=== PATIENT | male | born 1945 | race American Indian/Alaskan Native ===

== ENCOUNTER 2019-06-17 14:44 | Inpatient (IN) | payer MEDICARE ==
--- NOTE | 2019-06-17 16:37 | XRay Report ---
CHEST 1 VIEW INDICATION / CLINICAL INFORMATION: Dyspnea. COMPARISON: None available. FINDINGS: SUPPORT DEVICES: Pacemaker on the right. HEART / MEDIASTINUM: Postsurgical changes in the left hemithorax consistent with pneumonectomy, media stinal shift to the left. LUNGS / PLEURA: Perihilar additional prominence on the right may represent acute interstitial disease . No pneumothorax. ADDITIONAL FINDINGS: No significant additional findings. IMPRESSION: 1. Interstitial disease in the right lung. 2. Homogeneous opacification of the left hemithorax appears to be secondary to pneumonectomy. Signer Name: Chester Ivey MD Signed: 06/17/2019 4:32 PM Workstation Name: [id number]
[2019-06-17 16:56] LABS: Hematocrit 39.4 % (35.5-45.6); Hemoglobin 12.7 gm/dl (11.8-15.2); Mean Corpuscular HGB Conc 32 % (32-34); Mean Corpuscular Volume 88 fl (84-94); Platelet Count 258 K/mm3 (140-440)
[2019-06-17 17:07] LABS: Red Cell Distribution Width 20.7 % (13.2-15.2)
[2019-06-17 17:11] LABS: Alanine Aminotransferase 8 units/L (7-56); Albumin 3.2 g/dL (3.9-5); BUN/Creatinine Ratio 18; Blood Urea Nitrogen 24 mg/dL (9-20); Calcium 9.4 mg/dL (8.4-10.2); Hemolysis Index 60
[2019-06-17 17:31] LABS: Chol/HDL Ratio 1.85 %; HDL Cholesterol 49 mg/dL (40-59); LDL Cholesterol,Direct 39 mg/dL (50-130)
[2019-06-17 17:48] LABS: Anisocytosis 1+; Basophils % (Manual) 0 % (0.0-1.8); Eosinophils % (Manual) 0 % (0.0-4.3); Total Cells Counted 100
[2019-06-17 18:56] LABS: Bacteria,Urine 2+ /HPF (Negative); Bilirubin,Urine NEG (Negative); Blood,Urine SM (Negative); Color,Urine Yellow (Yellow); Mucus,Urine FEW /HPF; Urobilinogen,Urine < 2.0 mg/dL (<2.0)
--- NOTE | 2019-06-17 18:57 | Emergency Department Report ---
<TEJARAPHAEL - Last Filed: 06/17/19 18:50> ED Shortness of Breath HPI - General Chief Complaint: Dyspnea/Respdistress Stated Complaint: LBP Time Seen by Provider: 06/17/19 15:47 Source: patient Mode of arrival: Stretcher Limitations: No Limitations - History of Present Illness MD Complaint: shortness of breath, chest pain Severity: mild Consistency: constant Improves With: nothing Worsens With: nothing Associated Symptoms: chest pain Treatments Prior to Arrival: none - Related Data Allergies Allergy/AdvReac Type Severity Reaction Status Date / Time No Known Allergies Allergy Unverified 06/17/19 16:13 ED Review of Systems Comment: All other systems reviewed and negative ED Past Medical Hx - Past Medical History Previous Medical History?: Yes Hx Hypertension: Yes Hx COPD: Yes Additional medical history: PACEMAKER, CATHS SELF X A FEW YEARS, AFIB - Surgical History Past Surgical History?: Yes Additional Surgical History: LEFT LUNG REMOVED SECONDARY TO LUNG CA - Social History Smoking Status: Former Smoker Substance Use Type: None ED Physical Exam - General Limitations: No Limitations General appearance: alert, in no apparent distress - Head Head exam: Present: atraumatic, normocephalic - Eye Eye exam: Present: normal appearance - ENT ENT exam: Present: mucous membranes moist - Neck Neck exam: Present: normal inspection - Respiratory Respiratory exam: Present: normal lung sounds bilaterally, rhonchi, decreased breath sounds (left side). Absent: respiratory distress - Cardiovascular Cardiovascular Exam: Present: regular rate, irregular rhythm. Absent: systolic murmur, diastolic murmur, rubs, gallop - GI/Abdominal GI/Abdominal exam: Present: soft, normal bowel sounds. Absent: distended, hypoactive bowel sounds, bruit - Rectal Rectal exam: Present: deferred - Extremities Exam Extremities exam: Present: normal inspection - Back Exam Back exam: Present: normal inspection - Neurological Exam Neurological exam: Present: alert, oriented X3 - Psychiatric Psychiatric exam: Present: normal affect, normal mood - Skin Skin exam: Present: warm, dry, intact, normal color. Absent: rash ED Medical Decision Making - Lab Data Result diagrams: 06/17/19 16:36 06/17/19 16:36 - EKG Data Rate: tachycardia - Radiology Data Radiology results: report reviewed Referring Physician:RAPHAEL LEZAMAPatient Name:CHICO VALDIVIAPatient ID:[id number] of :[id number]:MaleAccession:[id number] Date:1883-20-63Kgkhas Status:Finalized Findings [facility] [address] [place] [address] XRay Report Signed Patient: CHICO VALDIVIA JR MR#: [id number] : 1945 Acct:[id number] Age/Sex: 73 / M ADM Date: 06/17/19 Loc: ED Attending Dr: Ordering Physician: CONRADO LOYA Date of Service: 06/17/19 Procedure(s): XR chest 1V ap Accession Number(s): [id number] cc: CONRADO LOYA Fluoro Time In Minutes: CHEST 1 VIEW INDICATION / CLINICAL INFORMATION: Dyspnea. COMPARISON: None available. FINDINGS: SUPPORT DEVICES: Pacemaker on the right. HEART / MEDIASTINUM: Postsurgical changes in the left hemithorax consistent with pneumonectomy, mediastinal shift to the left. LUNGS / PLEURA: Perihilar additional prominence on the right may represent acute interstitial disease. No pneumothorax. ADDITIONAL FINDINGS: No significant additional findings. IMPRESSION: 1. Interstitial disease in the right lung. 2. Homogeneous opacification of the left hemithorax appears to be secondary to pneumonectomy. Signer Name: Chester Ivey MD Signed: 06/17/2019 4:32 PM Workstation Name: [id number] Transcribed By: EMILEE Dictated By: Chester Ivey MD Electronically Authenticated By: Chester Ivey MD Signed Date/Time: 06/17/19 163 DD/ 163 TD/TT: ED Disposition Clinical Impression: Hypoxia Pneumonia Qualifiers: Pneumonia type: due to unspecified organism Laterality: right Lung location: unspecified part of lung Qualified Code(s): J18.9 - Pneumonia, unspecified organism Disposition: - OP ADMIT IP TO THIS HOSP Condition: Stable Instructions: Bacterial Pneumonia (ED) <SONYA WAHL - Last Filed: 06/17/19 23:09> ED Shortness of Breath HPI - History of Present Illness Initial Comments: Patient is a 73-year-old gentleman who is presenting with cough the past 2-3 days with increased shortness of breath. Short of breath worse with exertion. Patient has a history of COPD hypertension and a left lung removal secondary to lung cancer. Patient denies fever nausea vomiting. Patient does have some discomfort in the chest with cough. Patient is not oxygen dependent ED Review of Systems ROS: Stated complaint: LBP Other details as noted in HPI ED Course Vital Signs 06/17/19 06/17/19 06/17/19 15:09 15:37 17:45 Temperature 98.8 F Pulse Rate 112 H 110 H 99 H Respiratory 25 H 28 H Rate Blood Pressure 120/39 Blood Pressure 140/77 133/47 [Right] O2 Sat by Pulse 96 97 Oximetry 06/17/19 19:25 Temperature 98.0 F Pulse Rate 92 H Respiratory 13 Rate Blood Pressure Blood Pressure 124/107 [Right] O2 Sat by Pulse 93 Oximetry ED Medical Decision Making - Lab Data Result diagrams: 06/17/19 16:36 06/17/19 16:36 - Radiology Data Ordering Physician: CONRADO LOYA Date of Service: 06/17/19 Procedure(s): CT angio chest Accession Number(s): [id number] cc: CONRADO LOYA CTA CHEST WITH IV CONTRAST INDICATION: chest pain sob CONTRAST: 100 cc Omnipaque 350 IV COMPARISON: AP portable chest x-ray today Three-plane MIP reconstructions were produced. All CT scans at this location are performed using CT dose reduction for ALARA by means of automated exposure control. FINDINGS: No significant focal axillary or chest wall abnormalities are seen. No significant focal bony lesions are noted. Both lobes of the thyroid are heterogenous in appearance with several bilateral subcentimeter nodule versus cyst but without obvious dominant mass. Left pneumonectomy changes are seen with small amount of residual left pleural effusion and chronic appearing diffuse left pleural thickening. In the lower portion of the pleural effusion there is mild increased density up to 1055 Hounsfield units which could represent a small amount of blood or other proteinaceous material the possibly is just artifactual and is of unknown chronicity in this setting. Volume loss is seen with mediastinal shift to the left. No right pleural effusion is seen. There may be mild right hilar jessee prominence. No mediastinal or left hilar masses are obvious. Visualized portions of the upper abdomen show bilateral renal cysts. No definite adrenal lesion is seen. Right lung shows moderate chronic changes including diffuse emphysematous changes. In the right lower lobe there is moderate pneumonic type infiltrate and peripherally pleural parenchymal calcifications are seen which appear chronic. Mild patchy interstitial and alveolar type infiltrate are seen in the right middle lobe. There is a question of a nodular lesion in the right middle lobe centrally measuring 1 cm though this possibly is just patchy infiltrate. The aorta shows prominent atherosclerotic changes. Aorta is not well opacified for internal evaluation. Ascending aorta is dilated and the midportion has a diameter of 4.6 cm. The mid aortic arch diameter is 3 cm and beginning in the distal aortic arch there is dilatation with the distal arch measurement of 3.8 cm, proximal descending aorta diameter of 3.7 cm, mid descending diameter is 3 cm, distal descending diameter is 3.1 cm and proximal abdominal aorta diameter at the superior mesenteric artery root 2.4 cm. Good opacification of the pulmonary arterial system was achieved. I do not see convincing evidence of pulmonary thromboembolism. Left pulmonary artery has been ligated in conjunction with the pneumonectomy. IMPRESSION: 1. No evidence of pulmonary thromboembolism 2. Moderate right-sided pneumonitis, worse on the right lower lobe also seen in the right middle lobe 3. Nodule versus patchy infiltrate in the right middle lobe, recommend follow-up 4. Heterogenous appearance of the thyroid, likely representing mild multinodular goiter 5. Left pneumonectomy changes 6. Mild right hilar jessee prominence likely is reactive 7. Aortic dilatation as above - Medical Decision Making Patient is a 73-year-old male who is presenting with cough. Patient has some increased shortness of breath which is improved with oxygen therapy. X-ray shows pneumonitis the patient has elevated white count making pneumonia likely. Patient does seem to be requiring oxygen for improvement of his symptoms and the patient is to be admitted to the hospitalist service. Patient was given Levaquin. Blood cultures were drawn. Patient also has evidence of urinary tract infection worst-case the Levaquin will cover this as well. Critical Care Time: Yes (30) Critical care attestation.: If time is entered above; I have spent that time in minutes in the direct care of this critically ill patient, excluding procedure time. ED Disposition Is pt being admited?: Yes Does the pt Need Aspirin: No Time of Disposition: 23:09
--- NOTE | 2019-06-17 20:58 | Cat Scan Report ---
CTA CHEST WITH IV CONTRAST INDICATION: chest pain sob CONTRAST: 100 cc Omnipaque 350 IV COMPARISON: AP portable chest x-ray today Three-plane MIP reconstructions were produced. All CT scans at this location are performed using CT d ose reduction for ALARA by means of automated exposure control. FINDINGS: No significant focal axillary or chest wall abnormalities are seen. No significant focal rj ny lesions are noted. Both lobes of the thyroid are heterogenous in appearance with several bilateral subcentimeter nodule versus cyst but without obvious dominant mass. Left pneumonectomy changes are s een with small amount of residual left pleural effusion and chronic appearing diffuse left pleural th ickening. In the lower portion of the pleural effusion there is mild increased density up to 1055 Mara nsfield units which could represent a small amount of blood or other proteinaceous material the possi kevin is just artifactual and is of unknown chronicity in this setting. Volume loss is seen with medias tinal shift to the left. No right pleural effusion is seen. There may be mild right hilar jessee promi nence. No mediastinal or left hilar masses are obvious. Visualized portions of the upper abdomen show bilateral renal cysts. No definite adrenal lesion is seen. Right lung shows moderate chronic changes including diffuse emphysematous changes. In the right lower lobe there is moderate pneumonic type infiltrate and peripherally pleural parenchymal calcifications are seen which appear chronic. Mild patchy interstitial and alveolar type infiltrate are seen in the right middle lobe. There is a question of a nodular lesion in the right middle lobe centrally measur ing 1 cm though this possibly is just patchy infiltrate. The aorta shows prominent atherosclerotic changes. Aorta is not well opacified for internal evaluatio n. Ascending aorta is dilated and the midportion has a diameter of 4.6 cm. The mid aortic arch diamet er is 3 cm and beginning in the distal aortic arch there is dilatation with the distal arch measureme nt of 3.8 cm, proximal descending aorta diameter of 3.7 cm, mid descending diameter is 3 cm, distal d escending diameter is 3.1 cm and proximal abdominal aorta diameter at the superior mesenteric artery root 2.4 cm. Good opacification of the pulmonary arterial system was achieved. I do not see convincing evidence of pulmonary thromboembolism. Left pulmonary artery has been ligated in conjunction with the pneumonect ricky. IMPRESSION: 1. No evidence of pulmonary thromboembolism 2. Moderate right-sided pneumonitis, worse on the right lower lobe also seen in the right middle lobe 3. Nodule versus patchy infiltrate in the right middle lobe, recommend follow-up 4. Heterogenous appearance of the thyroid, likely representing mild multinodular goiter 5. Left pneumonectomy changes 6. Mild right hilar jessee prominence likely is reactive 7. Aortic dilatation as above INCIDENTAL THYROID NODULE RECOMMENDATIONS Nonpalpable nodules detected on US or other anatomic imaging studies are termed incidentally discover ed nodules or incidentalomas. Nonpalpable nodules have the same risk of malignancy as palpable nodule s with the same size. Generally, only nodules >1 cm should be evaluated, since they have a greater po tential to be clinically significant cancers. (JEANCARLOS, 2009). Follow up for incidental thyroid nodules <1 cm is not recommended. In patients <35 years with an incidental thyroid nodule detected on CT, MRI, or extrathyroidal ultras ound, dedicated thyroid ultrasound is recommended if the nodule is 1 cm, has no suspicious imaging fe atures, and if the patient has normal life expectancy. In patients 35 years with an incidental thyroid nodule detected on CT, MRI, or extrathyroidal ultraso und, dedicated thyroid ultrasound is recommended if the nodule is 1.5 cm, has no suspicious imaging f eatures, and if the patient has normal life expectancy. INCIDENTAL PULMONARY NODULE RECOMMENDATIONS Solid Nodule size* <6 mm -- Single or Multiple - Low Risk Patient: No routine follow-up - High Risk Patient: Optional CT at 12 months Solid Nodule size 6-8 mm -- Single - Low Risk Patient: CT at 6-12 months, then consider CT at 18-24 months - High Risk Patient: CT at 6-12 months, then CT at 18-24 months Solid Nodule size 6-8 mm -- Multiple - Low Risk Patient: CT at 3-6 months, then consider CT at 18-24 months - High Risk Patient: CT at 3-6 months, then CT at 18-24 months Solid Nodule size >8 mm -- Single - Low Risk or High Risk Patient: Consider CT at 3 months, PET/CT, or tissue sampling Solid Nodule size >8 mm -- Multiple - Low Risk Patient: CT at 3-6 months, then consider CT at 18-24 months - High Risk Patient: CT at 3-6 months, then CT at 18-24 months Subsolid Nodule (Ground glass) <6 mm - No routine follow-up Subsolid Nodule (Ground glass) >=6 mm - CT at 6-12 months to confirm persistence, then CT every 2 years until 5 years Subsolid Nodule (Part solid) <6 mm - No routine follow-up Subsolid Nodule (Part solid) >=6 mm - CT at 3-6 months to confirm persistence. If unchanged and solid component remains <6mm, annual CT s hould be performed for 5 years. Subsolid Nodule (Multiple) <6 mm - CT at 3-6 months. If stable, consider CT at 2 and 4 years. Subsolid Nodule (Multiple) >=6 mm - CT at 3-6 months. Subsequent management based on the most suspicious nodule(s). Note These recommendations do not apply to lung cancer screening, patients with immunosuppression, o r patients with known primary cancer. Note Newly detected indeterminate nodule in persons 35 years of age or older. Persons under the age of 35 should not receive follow-up unless there is a known primary cancer. Low Risk Patient -- minimal or absent history of smoking and of other known risk factors. High Risk Patient -- history of smoking or of other known risk factors. *Dimensions are average of long and short axes, rounded to the nearest millimeter. Based on 2017 Fleischner Society Guidelines found in Radiology 2017 284:228-243. https://doi.org/10.1 148/radiol.0740690168 Signer Name: João Campbell MD Signed: 06/17/2019 8:54 PM Workstation Name: [id number]
[2019-06-17] MEDS ORDERED: ONDANSETRON 4 MG/2 ML INJ IV PRN (23:25)
[2019-06-17] MEDS ORDERED: MORPHINE 2 MG/1 ML INJ IV PRN (23:25)
[2019-06-17] MEDS ORDERED: MAGNESIUM HYDROXIDE (MOM) ORAL LIQD UDC PO PRN (23:25)
--- NOTE | 2019-06-18 01:04 | History and Physical Report ---
History of Present Illness Date of examination: 06/17/19 Date of admission: 06/17/19 23:18 Chief complaint: Shortness of breath and cough History of present illness: 73-year-old male with known history of COPD, hypertension , left-sided lobectomy secondary to lung cancer presenting to the emergency room today complaining of cough and shortness of breath. Cough has been productive of some yellowish sputum and he has had some associated chest discomfort. Denies any sick contacts and no recent travel. Denies any nausea vomiting and no diarrhea. No headache or dizziness. Upon arrival in the emergency room patient was found to be slightly hypoxic and was placed on oxygen by nasal cannula. His work-up in the emergency room including chest x-ray and CT angiogram was consistent with pneumonia. He also had an elevated white count of 23 and some mild UTI. Past History Past Medical History: COPD, hypertension Past Surgical History: Other (Left lobectomy in the past secondary to lung cancer) Social history: smoking (Smokes less than half a pack of cigarette daily) Medications and Allergies Allergies Allergy/AdvReac Type Severity Reaction Status Date / Time No Known Allergies Allergy Unverified 06/17/19 16:13 Home Medications Medication Instructions Recorded Confirmed Last Taken Type Apixaban [Eliquis] 5 mg PO Q12HR 06/18/19 06/18/19 06/15/19 22:00 History 5 mg Atorvastatin [Lipitor Tab] 40 mg PO QHS 06/18/19 06/18/19 06/15/19 22:00 History 40 mg Finasteride 5 mg PO DAILY 06/18/19 06/18/19 06/15/19 09:00 History 5 mg Metoprolol Xl [Metoprolol 100 mg PO QDAY 06/18/19 06/18/19 06/15/19 09:00 History SUCCINATE ER TAB] 100 mg Tamsulosin [Flomax] 0.4 mg PO QDAY 06/18/19 06/18/19 06/15/19 22:00 History 0.4mg allopurinoL [Zyloprim] 300 mg PO QDAY 06/18/19 06/18/19 06/15/19 09:00 History 300 mg hydrALAZINE [Apresoline] 25 mg PO Q8HR 06/18/19 06/18/19 06/15/19 22:00 History 25 mg Active Meds: Active Medications Acetaminophen (Tylenol) 650 mg PO Q4H PRN PRN Reason: Pain MILD(1-3)/Fever >100.5/LEAHY Sodium Chloride (Nacl 0.9% 1000 Ml) 1,000 mls @ 125 mls/hr IV DIRECT JON Levofloxacin/Dextrose (Levaquin 750mg/150ml) 750 mg in 150 mls @ 100 mls/hr IV Q24HR JON; Protocol Magnesium Hydroxide (Milk Of Magnesia) 30 ml PO Q4H PRN PRN Reason: Constipation Morphine Sulfate (Morphine) 2 mg IV Q4H PRN PRN Reason: Pain, Moderate (4-6) Ondansetron HCl (Zofran) 4 mg IV Q8H PRN PRN Reason: Nausea And Vomiting Sodium Chloride (Sodium Chloride Flush Syringe 10 Ml) 10 ml IV BID JON Sodium Chloride (Sodium Chloride Flush Syringe 10 Ml) 10 ml IV PRN PRN PRN Reason: LINE FLUSH Review of Systems Respiratory: cough, shortness of breath Exam - Constitutional Vitals: Temp Pulse Resp BP Pulse Ox 98.0 F 92 H 13 124/107 93 06/17/19 19:25 06/17/19 19:25 06/17/19 19:25 06/17/19 19:25 06/17/19 19:25 General appearance: Present: no acute distress, well-nourished - EENT Eyes: Present: PERRL, EOM intact ENT: hearing intact, clear oral mucosa, dentition normal - Neck Neck: Present: supple, normal ROM - Respiratory Respiratory effort: normal Respiratory: bilateral: diminished - Cardiovascular Rhythm: irregularly irregular - Extremities Extremities: no ischemia, pulses symmetrical, No edema, Full ROM Peripheral Pulses: within normal limits - Abdominal General gastrointestinal: Present: soft, non-tender, non-distended - Integumentary Integumentary: Present: clear, warm, dry - Musculoskeletal Musculoskeletal: strength equal bilaterally - Psychiatric Psychiatric: appropriate mood/affect, intact judgment & insight, cooperative - Neurologic Neurologic: CNII-XII intact, moves all extremities Results - Labs CBC & Chem 7: 06/17/19 16:36 06/17/19 16:36 Labs: Abnormal lab results 06/17/19 06/17/19 06/17/19 Range/Units 16:36 16:36 18:25 WBC 23.4 H (4.5-11.0) K/mm3 RDW 20.7 H (13.2-15.2) % Seg Neuts % (Manual) 91.0 H (40.0-70.0) % Lymphocytes % (Manual) 5.0 L (13.4-35.0) % Seg Neutrophils # Man 21.3 H (1.8-7.7) K/mm3 Monocytes # (Manual) 0.9 H (0.0-0.8) K/mm3 POC ABG pH (7.35-7.45) POC ABG pCO2 (35-45) Carbon Dioxide 19 L (22-30) mmol/L BUN 24 H (9-20) mg/dL Glucose 109 H (75-100) mg/dL Troponin T 0.040 H (0.00-0.029) ng/mL NT-Pro-B Natriuret Pep (0-900) pg/mL Total Protein 8.4 H (6.3-8.2) g/dL Albumin 3.2 L (3.9-5) g/dL LDL Cholesterol Direct 39 L (50-130) mg/dL Urine WBC (Auto) 11.0 H (0.0-6.0) /HPF 06/17/19 06/17/19 06/17/19 Range/Units 18:53 18:53 22:08 WBC (4.5-11.0) K/mm3 RDW (13.2-15.2) % Seg Neuts % (Manual) (40.0-70.0) % Lymphocytes % (Manual) (13.4-35.0) % Seg Neutrophils # Man (1.8-7.7) K/mm3 Monocytes # (Manual) (0.0-0.8) K/mm3 POC ABG pH 7.543 H (7.35-7.45) POC ABG pCO2 28.4 L (35-45) Carbon Dioxide (22-30) mmol/L BUN (9-20) mg/dL Glucose (75-100) mg/dL Troponin T 0.037 H (0.00-0.029) ng/mL NT-Pro-B Natriuret Pep 5019 H (0-900) pg/mL Total Protein (6.3-8.2) g/dL Albumin (3.9-5) g/dL LDL Cholesterol Direct (50-130) mg/dL Urine WBC (Auto) (0.0-6.0) /HPF Assessment and Plan - Patient Problems (1) Pneumonia Current Visit: Yes Status: Acute Qualifiers: Pneumonia type: due to unspecified organism Laterality: right Lung location: unspecified part of lung Qualified Code(s): J18.9 - Pneumonia, unspecified organism Plan to address problem: Patient started on empiric IV antibiotics. We will await blood culture results. (2) Hypoxia Current Visit: Yes Status: Acute Plan to address problem: Possibly secondary to the pneumonia patient has been placed on oxygen and will keep O2 saturation greater or equal to 92%. (3) Leukocytosis Current Visit: Yes Status: Acute Plan to address problem: Possibly secondary to the underlying infection. Will monitor CBC. (4) Hypertension Current Visit: Yes Status: Acute Plan to address problem: Place patient on his routine home medications and monitor vital signs closely. (5) DVT prophylaxis Current Visit: Yes Status: Acute Plan to address problem: Patient currently on anticoagulation. (6) Full code status Current Visit: Yes Status: Acute
[2019-06-18] MEDS: SODIUM CHLORIDE 0.9% 1000 ML 1,000 ML IV SCH ×2 (02:10→15:17)
[2019-06-18 06:57] LABS: Hemoglobin 11.4 gm/dl (11.8-15.2); Mean Corpuscular HGB Conc 33 % (32-34); Mean Corpuscular Volume 86 fl (84-94); Platelet Count 210 K/mm3 (140-440); Red Blood Count 4.07 M/mm3 (3.65-5.03); Red Cell Distribution Width 19.9 % (13.2-15.2)
[2019-06-18 07:15] LABS: BUN/Creatinine Ratio 20; Blood Urea Nitrogen 24 mg/dL (9-20); Calcium 8.4 mg/dL (8.4-10.2); Hemolysis Index 7
[2019-06-18 07:24] LABS: INR 1.78 (0.87-1.13)
[2019-06-18 07:25] LABS: Partial Thromboplastin Time 41.8 Sec. (24.2-36.6)
[2019-06-18] MEDS: TAMSULOSIN 0.4 MG CAP PO SCH (09:41)
[2019-06-18] MEDS: APIXABAN 5 MG TAB PO SCH ×2 (09:41→22:00)
[2019-06-18] MEDS: FINASTERIDE 5 MG TAB PO SCH (09:41)
[2019-06-18] MEDS: allopurinoL 300 MG TAB PO SCH (09:42)
[2019-06-18] MEDS: METOPROLOL SUCCINATE XL 100 MG TAB PO SCH (09:45)
[2019-06-18 10:39] LABS: Band Neutrophils # (Manual) 0.4 K/mm3; Basophils % (Manual) 0 % (0.0-1.8); Eosinophils % (Manual) 0 % (0.0-4.3); Total Cells Counted 100
[2019-06-18 10:40] LABS: Hypochromasia Few; Target Cells Rare
[2019-06-18 10:41] LABS: Large Platelets Few; Platelet Estimate Consistent w Auto
--- NOTE | 2019-06-18 11:27 | Progress Note ---
Assessment and Plan Assessment and plan: RML/RLL pneumonia. Continue IV antibiotics and follow-up blood cultures. Acute COPD exacerbation. Continue IV steroids, IV antibiotics and bronchodilators/nebulizers. History of lung CA. Patient is s/p left-sided lobectomy Acute hypoxemic respiratory failure. Etiology secondary to above. Continue O2 and BiPAP as clinically indicated. Hypertension. Continue antihypertensive medications. Multinodular goiter. Check TSH. Consider thyroid scan DVT prophylaxis. Continue anticoagulants. History Interval history: No new issues overnight. Hospitalist Physical - Constitutional Vitals: Temp Pulse Resp BP Pulse Ox 98.5 F 80 20 121/53 100 06/18/19 08:09 06/18/19 10:00 06/18/19 08:09 06/18/19 09:45 06/18/19 09:45 General appearance: Present: no acute distress, well-nourished - EENT Eyes: Present: PERRL, EOM intact ENT: hearing intact, clear oral mucosa, dentition normal - Neck Neck: Present: supple, normal ROM - Respiratory Respiratory effort: normal Respiratory: bilateral: CTA - Cardiovascular Rhythm: regular Heart Sounds: Present: S1 & S2. Absent: gallop, rub - Extremities Extremities: no ischemia, No edema, Full ROM - Abdominal General gastrointestinal: soft, non-tender, non-distended, normal bowel sounds - Integumentary Integumentary: Present: clear, warm, dry - Neurologic Neurologic: CNII-XII intact, moves all extremities Results - Labs CBC & Chem 7: 06/18/19 05:59 06/18/19 05:59 Labs: Laboratory Last Values WBC 19.9 K/mm3 (4.5-11.0) H 06/18/19 05:59 RBC 4.07 M/mm3 (3.65-5.03) 06/18/19 05:59 Hgb 11.4 gm/dl (11.8-15.2) L 06/18/19 05:59 Hct 35.0 % (35.5-45.6) L 06/18/19 05:59 MCV 86 fl (84-94) 06/18/19 05:59 MCH 28 pg (28-32) 06/18/19 05:59 MCHC 33 % (32-34) 06/18/19 05:59 RDW 19.9 % (13.2-15.2) H 06/18/19 05:59 Plt Count 210 K/mm3 (140-440) 06/18/19 05:59 Add Manual Diff Complete 06/18/19 05:59 Total Counted 100 06/18/19 05:59 Seg Neutrophils % Stitching Department Supervisor 06/18/19 05:59 Seg Neuts % (Manual) 92.0 % (40.0-70.0) H 06/18/19 05:59 Band Neutrophils % 2.0 % 06/18/19 05:59 Lymphocytes % (Manual) 1.0 % (13.4-35.0) L 06/18/19 05:59 Reactive Lymphs % (Man) 0 % 06/18/19 05:59 Monocytes % (Manual) 5.0 % (0.0-7.3) 06/18/19 05:59 Eosinophils % (Manual) 0 % (0.0-4.3) 06/18/19 05:59 Basophils % (Manual) 0 % (0.0-1.8) 06/18/19 05:59 Metamyelocytes % 0 % 06/18/19 05:59 Myelocytes % 0 % 06/18/19 05:59 Promyelocytes % 0 % 06/18/19 05:59 Blast Cells % 0 % 06/18/19 05:59 Nucleated RBC % Not Reportable 06/18/19 05:59 Seg Neutrophils # Man 18.3 K/mm3 (1.8-7.7) H 06/18/19 05:59 Band Neutrophils # 0.4 K/mm3 06/18/19 05:59 Lymphocytes # (Manual) 0.2 K/mm3 (1.2-5.4) L 06/18/19 05:59 Abs React Lymphs (Man) 0.0 K/mm3 06/18/19 05:59 Monocytes # (Manual) 1.0 K/mm3 (0.0-0.8) H 06/18/19 05:59 Eosinophils # (Manual) 0.0 K/mm3 (0.0-0.4) 06/18/19 05:59 Basophils # (Manual) 0.0 K/mm3 (0.0-0.1) 06/18/19 05:59 Metamyelocytes # 0.0 K/mm3 06/18/19 05:59 Myelocytes # 0.0 K/mm3 06/18/19 05:59 Promyelocytes # 0.0 K/mm3 06/18/19 05:59 Blast Cells # 0.0 K/mm3 06/18/19 05:59 WBC Morphology Not Reportable 06/18/19 05:59 Hypersegmented Neuts Not Reportable 06/18/19 05:59 Hyposegmented Neuts Not Reportable 06/18/19 05:59 Hypogranular Neuts Not Reportable 06/18/19 05:59 Smudge Cells Not Reportable 06/18/19 05:59 Toxic Granulation Not Reportable 06/18/19 05:59 Toxic Vacuolation Not Reportable 06/18/19 05:59 Dohle Bodies Not Reportable 06/18/19 05:59 Pelger-Huet Anomaly Not Reportable 06/18/19 05:59 Bong Rods Not Reportable 06/18/19 05:59 Platelet Estimate Consistent w auto 06/18/19 05:59 Clumped Platelets Not Reportable 06/18/19 05:59 Plt Clumps, EDTA Not Reportable 06/18/19 05:59 Large Platelets Few 06/18/19 05:59 Giant Platelets Not Reportable 06/18/19 05:59 Platelet Satelliting Not Reportable 06/18/19 05:59 Plt Morphology Comment Not Reportable 06/18/19 05:59 RBC Morphology Not Reportable 06/18/19 05:59 Dimorphic RBCs Not Reportable 06/18/19 05:59 Polychromasia Not Reportable 06/18/19 05:59 Hypochromasia Few 06/18/19 05:59 Poikilocytosis Not Reportable 06/18/19 05:59 Anisocytosis Not Reportable 06/18/19 05:59 Microcytosis Not Reportable 06/18/19 05:59 Macrocytosis Not Reportable 06/18/19 05:59 Spherocytes Not Reportable 06/18/19 05:59 Pappenheimer Bodies Not Reportable 06/18/19 05:59 Sickle Cells Not Reportable 06/18/19 05:59 Target Cells Rare 06/18/19 05:59 Tear Drop Cells Not Reportable 06/18/19 05:59 Ovalocytes Not Reportable 06/18/19 05:59 Helmet Cells Not Reportable 06/18/19 05:59 [place] Bodies Not Reportable 06/18/19 05:59 [place] Rings Not Reportable 06/18/19 05:59 [place] Cells Not Reportable 06/18/19 05:59 Bite Cells Not Reportable 06/18/19 05:59 Crenated Cell Not Reportable 06/18/19 05:59 Elliptocytes Few 06/18/19 05:59 Acanthocytes (Spur) Not Reportable 06/18/19 05:59 Rouleaux Not Reportable 06/18/19 05:59 Hemoglobin C Crystals Not Reportable 06/18/19 05:59 Schistocytes Not Reportable 06/18/19 05:59 Malaria parasites Not Reportable 06/18/19 05:59 Niels Bodies Not Reportable 06/18/19 05:59 Hem Pathologist Commnt No 06/18/19 05:59 PT 21.0 Sec. (12.2-14.9) H 06/18/19 05:59 INR 1.78 (0.87-1.13) H 06/18/19 05:59 APTT 41.8 Sec. (24.2-36.6) H 06/18/19 05:59 POC ABG pH 7.543 (7.35-7.45) H 06/17/19 22:08 POC ABG pCO2 28.4 (35-45) L 06/17/19 22:08 POC ABG pO2 80 (80-105) 06/17/19 22:08 POC ABG HCO3 24.4 (22-26 mml/L) 06/17/19 22:08 POC ABG Total CO2 25 (23-27mmol/L) 06/17/19 22:08 POC ABG O2 Sat 97 06/17/19 22:08 POC ABG Base Excess 2 ((-2) - (+3)mmol/L) 06/17/19 22:08 FiO2 36 % 06/17/19 22:08 Sodium 139 mmol/L (137-145) 06/18/19 05:59 Potassium 3.9 mmol/L (3.6-5.0) D 06/18/19 05:59 Chloride 103.2 mmol/L (98-107) 06/18/19 05:59 Carbon Dioxide 20 mmol/L (22-30) L 06/18/19 05:59 Anion Gap 20 mmol/L 06/18/19 05:59 BUN 24 mg/dL (9-20) H 06/18/19 05:59 Creatinine 1.2 mg/dL (0.8-1.5) 06/18/19 05:59 Estimated GFR > 60 ml/min 06/18/19 05:59 BUN/Creatinine Ratio 20 % 06/18/19 05:59 Glucose 106 mg/dL (75-100) H 06/18/19 05:59 Calcium 8.4 mg/dL (8.4-10.2) 06/18/19 05:59 Total Bilirubin 0.70 mg/dL (0.1-1.2) 06/17/19 16:36 AST 18 units/L (5-40) 06/17/19 16:36 ALT 8 units/L (7-56) 06/17/19 16:36 Alkaline Phosphatase 74 units/L (35-129) 06/17/19 16:36 Troponin T 0.037 ng/mL (0.00-0.029) H 06/17/19 18:53 NT-Pro-B Natriuret Pep 5019 pg/mL (0-900) H 06/17/19 18:53 Total Protein 8.4 g/dL (6.3-8.2) H 06/17/19 16:36 Albumin 3.2 g/dL (3.9-5) L 06/17/19 16:36 Albumin/Globulin Ratio 0.6 % 06/17/19 16:36 Triglycerides 53 mg/dL (2-149) 06/17/19 16:36 Cholesterol 91 mg/dL (50-199) 06/17/19 16:36 LDL Cholesterol Direct 39 mg/dL (50-130) L 06/17/19 16:36 HDL Cholesterol 49 mg/dL (40-59) 06/17/19 16:36 Cholesterol/HDL Ratio 1.85 % 06/17/19 16:36 Urine Color Yellow (Yellow) 06/17/19 18:25 Urine Turbidity Clear (Clear) 06/17/19 18:25 Urine pH 5.0 (5.0-7.0) 06/17/19 18:25 Ur Specific [place] 1.015 (1.003-1.030) 06/17/19 18:25 Urine Protein 30 mg/dl mg/dL (Negative) 06/17/19 18:25 Urine Glucose (UA) Neg mg/dL (Negative) 06/17/19 18:25 Urine Ketones Neg mg/dL (Negative) 06/17/19 18:25 Urine Blood Sm (Negative) 06/17/19 18:25 Urine Nitrite Pos (Negative) 06/17/19 18:25 Urine Bilirubin Neg (Negative) 06/17/19 18:25 Urine Urobilinogen < 2.0 mg/dL (<2.0) 06/17/19 18:25 Ur Leukocyte Esterase Tr (Negative) 06/17/19 18:25 Urine WBC (Auto) 11.0 /HPF (0.0-6.0) H 06/17/19 18:25 Urine RBC (Auto) 1.0 /HPF (0.0-6.0) 06/17/19 18:25 U Epithel Cells (Auto) 1.0 /HPF (0-13.0) 06/17/19 18:25 Urine Bacteria (Auto) 2+ /HPF (Negative) 06/17/19 18:25 Urine Mucus Few /HPF 06/17/19 18:25 Active Medications - Current Medications Current Medications: Generic Name Dose Route Start Last Admin Trade Name Freq PRN Reason Stop Dose Admin Acetaminophen 650 mg 06/17/19 23:25 Tylenol PO Q4H PRN Pain MILD(1-3)/Fever >100.5/LEAHY Allopurinol 300 mg 06/18/19 10:00 06/18/19 09:42 Zyloprim PO 300 mg QDAY JON Administration Apixaban 5 mg 06/18/19 10:00 06/18/19 09:41 Eliquis PO 5 mg Q12HR JON Administration Protocol Atorvastatin Calcium 40 mg 06/18/19 22:00 Lipitor PO QHS JON Finasteride 5 mg 06/18/19 10:00 06/18/19 09:41 Proscar PO 5 mg DAILY JON Administration Hydralazine HCl 25 mg 06/18/19 14:00 Apresoline PO Q8HR JON Sodium Chloride 1,000 mls @ 125 mls/hr 06/17/19 23:30 06/18/19 02:10 Nacl 0.9% 1000 Ml IV 125 mls/hr DIRECT JON Administration Levofloxacin/Dextrose 750 mg in 150 mls @ 100 mls/hr 06/18/19 10:00 06/18/19 09:40 Levaquin 750mg/150ml IV 100 mls/hr Q24HR JON Administration Protocol Magnesium Hydroxide 30 ml 06/17/19 23:25 Milk Of Magnesia PO Q4H PRN Constipation Metoprolol Succinate 100 mg 06/18/19 10:00 06/18/19 09:45 Metoprolol Xl PO 100 mg QDAY JON Administration Morphine Sulfate 2 mg 06/17/19 23:25 Morphine IV Q4H PRN Pain, Moderate (4-6) Ondansetron HCl 4 mg 06/17/19 23:25 Zofran IV Q8H PRN Nausea And Vomiting Sodium Chloride 10 ml 06/18/19 10:00 06/18/19 09:42 Sodium Chloride Flush Syringe 10 Ml IV 10 ml BID JON Administration Sodium Chloride 10 ml 06/17/19 23:25 06/18/19 02:10 Sodium Chloride Flush Syringe 10 Ml IV 10 ml PRN PRN Administration LINE FLUSH Tamsulosin HCl 0.4 mg 06/18/19 10:00 06/18/19 09:41 Flomax PO 0.4 mg QDAY JON Administration
[2019-06-18] MEDS: hydrALAZINE 25 MG TAB PO SCH (13:11)
[2019-06-18] MEDS ORDERED: VANCOMYCIN PHARMACY TO DOSE IV SCH (18:00)
[2019-06-18] MEDS ORDERED: VANCOMYCIN/NS 1 GM/250 ML 1 GM/250 ML BAG IV SCH (18:00)
[2019-06-18] MEDS: VANCOMYCIN/NS 1 GM/250 ML 1 GM/250 ML BAG IV SCH (18:25)
[2019-06-19] MEDS: ALBUTEROL 2.5 MG/3 ML NEBU IH SCH ×5 (03:49→14:33)
[2019-06-19] MEDS: SODIUM CHLORIDE 0.9% 1000 ML 1,000 ML IV SCH ×2 (04:51→14:13)
--- NOTE | 2019-06-19 08:07 | Progress Note ---
Assessment and Plan Assessment and plan: Sepsis. Present on admission. Patient meets criteria given the leukocytosis, tachycardia and diagnosis of pneumonia. Continue antibiotics and follow-up blood cultures. RML/RLL pneumonia. As above. Follow-up serial chest x-ray. Acute COPD exacerbation. Continue IV steroids, IV antibiotics and bro nchodilators/nebulizers. History of lung CA. Patient is s/p left-sided lobectomy Acute hypoxemic respiratory failure. Etiology secondary to above. Continue O2 and BiPAP as clinically indicated. Hypertension. Continue antihypertensive medications. Multinodular goiter. Check TSH, T3 and T4. Consider thyroid scan DVT prophylaxis. Continue anticoagulants. Disposition. I called the daughter for updates at [phone] but no answer History Interval history: No new issues overnight. Hospitalist Physical - Constitutional Vitals: Temp Pulse Resp BP Pulse Ox 97.8 F 98 H 18 109/43 97 06/19/19 02:50 06/19/19 03:53 06/19/19 03:53 06/19/19 02:50 06/19/19 03:53 General appearance: Present: no acute distress, well-nourished - EENT Eyes: Present: PERRL, EOM intact ENT: hearing intact, clear oral mucosa, dentition normal - Neck Neck: Present: supple, normal ROM - Respiratory Respiratory effort: normal Respiratory: bilateral: CTA - Cardiovascular Rhythm: regular Heart Sounds: Present: S1 & S2. Absent: gallop, rub - Extremities Extremities: no ischemia, No edema, Full ROM - Abdominal General gastrointestinal: soft, non-tender, non-distended, normal bowel sounds - Integumentary Integumentary: Present: clear, warm, dry - Neurologic Neurologic: CNII-XII intact, moves all extremities Results - Labs CBC & Chem 7: 06/19/19 07:28 06/19/19 07:28 Labs: Laboratory Last Values WBC 19.9 K/mm3 (4.5-11.0) H 06/18/19 05:59 RBC 4.07 M/mm3 (3.65-5.03) 06/18/19 05:59 Hgb 11.4 gm/dl (11.8-15.2) L 06/18/19 05:59 Hct 35.0 % (35.5-45.6) L 06/18/19 05:59 MCV 86 fl (84-94) 06/18/19 05:59 MCH 28 pg (28-32) 06/18/19 05:59 MCHC 33 % (32-34) 06/18/19 05:59 RDW 19.9 % (13.2-15.2) H 06/18/19 05:59 Plt Count 210 K/mm3 (140-440) 06/18/19 05:59 Add Manual Diff Complete 06/18/19 05:59 Total Counted 100 06/18/19 05:59 Seg Neutrophils % [employer] Teacher 06/18/19 05:59 Seg Neuts % (Manual) 92.0 % (40.0-70.0) H 06/18/19 05:59 Band Neutrophils % 2.0 % 06/18/19 05:59 Lymphocytes % (Manual) 1.0 % (13.4-35.0) L 06/18/19 05:59 Reactive Lymphs % (Man) 0 % 06/18/19 05:59 Monocytes % (Manual) 5.0 % (0.0-7.3) 06/18/19 05:59 Eosinophils % (Manual) 0 % (0.0-4.3) 06/18/19 05:59 Basophils % (Manual) 0 % (0.0-1.8) 06/18/19 05:59 Metamyelocytes % 0 % 06/18/19 05:59 Myelocytes % 0 % 06/18/19 05:59 Promyelocytes % 0 % 06/18/19 05:59 Blast Cells % 0 % 06/18/19 05:59 Nucleated RBC % Not Reportable 06/18/19 05:59 Seg Neutrophils # Man 18.3 K/mm3 (1.8-7.7) H 06/18/19 05:59 Band Neutrophils # 0.4 K/mm3 06/18/19 05:59 Lymphocytes # (Manual) 0.2 K/mm3 (1.2-5.4) L 06/18/19 05:59 Abs React Lymphs (Man) 0.0 K/mm3 06/18/19 05:59 Monocytes # (Manual) 1.0 K/mm3 (0.0-0.8) H 06/18/19 05:59 Eosinophils # (Manual) 0.0 K/mm3 (0.0-0.4) 06/18/19 05:59 Basophils # (Manual) 0.0 K/mm3 (0.0-0.1) 06/18/19 05:59 Metamyelocytes # 0.0 K/mm3 06/18/19 05:59 Myelocytes # 0.0 K/mm3 06/18/19 05:59 Promyelocytes # 0.0 K/mm3 06/18/19 05:59 Blast Cells # 0.0 K/mm3 06/18/19 05:59 WBC Morphology Not Reportable 06/18/19 05:59 Hypersegmented Neuts Not Reportable 06/18/19 05:59 Hyposegmented Neuts Not Reportable 06/18/19 05:59 Hypogranular Neuts Not Reportable 06/18/19 05:59 Smudge Cells Not Reportable 06/18/19 05:59 Toxic Granulation Not Reportable 06/18/19 05:59 Toxic Vacuolation Not Reportable 06/18/19 05:59 Dohle Bodies Not Reportable 06/18/19 05:59 Pelger-Huet Anomaly Not Reportable 06/18/19 05:59 Bong Rods Not Reportable 06/18/19 05:59 Platelet Estimate Consistent w auto 06/18/19 05:59 Clumped Platelets Not Reportable 06/18/19 05:59 Plt Clumps, EDTA Not Reportable 06/18/19 05:59 Large Platelets Few 06/18/19 05:59 Giant Platelets Not Reportable 06/18/19 05:59 Platelet Satelliting Not Reportable 06/18/19 05:59 Plt Morphology Comment Not Reportable 06/18/19 05:59 RBC Morphology Not Reportable 06/18/19 05:59 Dimorphic RBCs Not Reportable 06/18/19 05:59 Polychromasia Not Reportable 06/18/19 05:59 Hypochromasia Few 06/18/19 05:59 Poikilocytosis Not Reportable 06/18/19 05:59 Anisocytosis Not Reportable 06/18/19 05:59 Microcytosis Not Reportable 06/18/19 05:59 Macrocytosis Not Reportable 06/18/19 05:59 Spherocytes Not Reportable 06/18/19 05:59 Pappenheimer Bodies Not Reportable 06/18/19 05:59 Sickle Cells Not Reportable 06/18/19 05:59 Target Cells Rare 06/18/19 05:59 Tear Drop Cells Not Reportable 06/18/19 05:59 Ovalocytes Not Reportable 06/18/19 05:59 Helmet Cells Not Reportable 06/18/19 05:59 [place] Bodies Not Reportable 06/18/19 05:59 [place] Rings Not Reportable 06/18/19 05:59 [place] Cells Not Reportable 06/18/19 05:59 Bite Cells Not Reportable 06/18/19 05:59 Crenated Cell Not Reportable 06/18/19 05:59 Elliptocytes Few 06/18/19 05:59 Acanthocytes (Spur) Not Reportable 06/18/19 05:59 Rouleaux Not Reportable 06/18/19 05:59 Hemoglobin C Crystals Not Reportable 06/18/19 05:59 Schistocytes Not Reportable 06/18/19 05:59 Malaria parasites Not Reportable 06/18/19 05:59 Niels Bodies Not Reportable 06/18/19 05:59 Hem Pathologist Commnt No 06/18/19 05:59 PT 21.0 Sec. (12.2-14.9) H 06/18/19 05:59 INR 1.78 (0.87-1.13) H 06/18/19 05:59 APTT 41.8 Sec. (24.2-36.6) H 06/18/19 05:59 POC ABG pH 7.543 (7.35-7.45) H 06/17/19 22:08 POC ABG pCO2 28.4 (35-45) L 06/17/19 22:08 POC ABG pO2 80 (80-105) 06/17/19 22:08 POC ABG HCO3 24.4 (22-26 mml/L) 06/17/19 22:08 POC ABG Total CO2 25 (23-27mmol/L) 06/17/19 22:08 POC ABG O2 Sat 97 06/17/19 22:08 POC ABG Base Excess 2 ((-2) - (+3)mmol/L) 06/17/19 22:08 FiO2 36 % 06/17/19 22:08 Sodium 139 mmol/L (137-145) 06/18/19 05:59 Potassium 3.9 mmol/L (3.6-5.0) D 06/18/19 05:59 Chloride 103.2 mmol/L (98-107) 06/18/19 05:59 Carbon Dioxide 20 mmol/L (22-30) L 06/18/19 05:59 Anion Gap 20 mmol/L 06/18/19 05:59 BUN 24 mg/dL (9-20) H 06/18/19 05:59 Creatinine 1.2 mg/dL (0.8-1.5) 06/18/19 05:59 Estimated GFR > 60 ml/min 06/18/19 05:59 BUN/Creatinine Ratio 20 % 06/18/19 05:59 Glucose 106 mg/dL (75-100) H 06/18/19 05:59 Calcium 8.4 mg/dL (8.4-10.2) 06/18/19 05:59 Total Bilirubin 0.70 mg/dL (0.1-1.2) 06/17/19 16:36 AST 18 units/L (5-40) 06/17/19 16:36 ALT 8 units/L (7-56) 06/17/19 16:36 Alkaline Phosphatase 74 units/L (35-129) 06/17/19 16:36 Troponin T 0.037 ng/mL (0.00-0.029) H 06/17/19 18:53 NT-Pro-B Natriuret Pep 5019 pg/mL (0-900) H 06/17/19 18:53 Total Protein 8.4 g/dL (6.3-8.2) H 06/17/19 16:36 Albumin 3.2 g/dL (3.9-5) L 06/17/19 16:36 Albumin/Globulin Ratio 0.6 % 06/17/19 16:36 Triglycerides 53 mg/dL (2-149) 06/17/19 16:36 Cholesterol 91 mg/dL (50-199) 06/17/19 16:36 LDL Cholesterol Direct 39 mg/dL (50-130) L 06/17/19 16:36 HDL Cholesterol 49 mg/dL (40-59) 06/17/19 16:36 Cholesterol/HDL Ratio 1.85 % 06/17/19 16:36 Urine Color Yellow (Yellow) 06/17/19 18:25 Urine Turbidity Clear (Clear) 06/17/19 18:25 Urine pH 5.0 (5.0-7.0) 06/17/19 18:25 Ur Specific [place] 1.015 (1.003-1.030) 06/17/19 18:25 Urine Protein 30 mg/dl mg/dL (Negative) 06/17/19 18:25 Urine Glucose (UA) Neg mg/dL (Negative) 06/17/19 18:25 Urine Ketones Neg mg/dL (Negative) 06/17/19 18:25 Urine Blood Sm (Negative) 06/17/19 18:25 Urine Nitrite Pos (Negative) 06/17/19 18:25 Urine Bilirubin Neg (Negative) 06/17/19 18:25 Urine Urobilinogen < 2.0 mg/dL (<2.0) 06/17/19 18:25 Ur Leukocyte Esterase Tr (Negative) 06/17/19 18:25 Urine WBC (Auto) 11.0 /HPF (0.0-6.0) H 06/17/19 18:25 Urine RBC (Auto) 1.0 /HPF (0.0-6.0) 06/17/19 18:25 U Epithel Cells (Auto) 1.0 /HPF (0-13.0) 06/17/19 18:25 Urine Bacteria (Auto) 2+ /HPF (Negative) 06/17/19 18:25 Urine Mucus Few /HPF 06/17/19 18:25 Active Medications - Current Medications Current Medications: Generic Name Dose Route Start Last Admin Trade Name Freq PRN Reason Stop Dose Admin Acetaminophen 650 mg 06/17/19 23:25 Tylenol PO Q4H PRN Pain MILD(1-3)/Fever >100.5/LEAHY Albuterol 2.5 mg 06/18/19 12:00 06/19/19 07:33 Proventil IH 2.5 mg Q4HRT JON Administration Allopurinol 300 mg 06/18/19 10:00 06/18/19 09:42 Zyloprim PO 300 mg QDAY JON Administration Apixaban 5 mg 06/18/19 10:00 06/18/19 22:00 Eliquis PO 5 mg Q12HR JON Administration Protocol Atorvastatin Calcium 40 mg 06/18/19 22:00 06/18/19 22:00 Lipitor PO 40 mg QHS JON Administration Finasteride 5 mg 06/18/19 10:00 06/18/19 09:41 Proscar PO 5 mg DAILY JON Administration Hydralazine HCl 25 mg 06/18/19 14:00 06/18/19 13:11 Apresoline PO 25 mg Q8HR JON Administration Sodium Chloride 1,000 mls @ 125 mls/hr 06/17/19 23:30 06/19/19 04:51 Nacl 0.9% 1000 Ml IV 125 mls/hr DIRECT JON Administration Levofloxacin/Dextrose 750 mg in 150 mls @ 100 mls/hr 06/18/19 10:00 06/18/19 09:40 Levaquin 750mg/150ml IV 100 mls/hr Q24HR JON Administration Protocol Vancomycin HCl 1 gm in 250 mls @ 166.667 mls/hr 06/18/19 19:00 06/18/19 18:25 Vancomycin/Ns 1 Gm/250 Ml IV 166.667 mls/hr Q24H JON Administration Magnesium Hydroxide 30 ml 06/17/19 23:25 Milk Of Magnesia PO Q4H PRN Constipation Metoprolol Succinate 100 mg 06/18/19 10:00 06/18/19 09:45 Metoprolol Xl PO 100 mg QDAY JON Administration Morphine Sulfate 2 mg 06/17/19 23:25 Morphine IV Q4H PRN Pain, Moderate (4-6) Ondansetron HCl 4 mg 06/17/19 23:25 Zofran IV Q8H PRN Nausea And Vomiting Sodium Chloride 10 ml 06/18/19 10:00 06/19/19 04:54 Sodium Chloride Flush Syringe 10 Ml IV 10 ml BID JON Administration Sodium Chloride 10 ml 06/17/19 23:25 06/18/19 02:10 Sodium Chloride Flush Syringe 10 Ml IV 10 ml PRN PRN Administration LINE FLUSH Tamsulosin HCl 0.4 mg 06/18/19 10:00 06/18/19 09:41 Flomax PO 0.4 mg QDAY JON Administration Nutrition/Malnutrition Assess - Dietary Evaluation Nutrition/Malnutrition Findings: Nutrition Notes Start: 06/18/19 11:39 Freq: Status: Active Protocol: Document 06/18/19 11:39 LP (Rec: 06/18/19 11:46 LP [id number]) Nutrition Notes Need for Assessment generated from: life educator Initial or Follow up Assessment Current Diagnosis COPD,Hypertension Other Pertinent Diagnosis Pneu, left lobectomy, Hx lung CA Current Diet Cardiac Labs/Tests BUN 24 BG 106 Pro BNP 5019 Pertinent Medications NS at 125ml/hr Height 5 ft 11 in Weight 54.4 kg [place] Body Weight (kg) 78.18 BMI 16.7 Weight Status Underweight Subjective/Other Information Screen for MST. 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 Pt unaware of UBW or amount lost. Pt consumed 25% of breakfast this AM. Pt on venturimask. Burn Absent GI Symptoms None Current % PO Poor (25-49%) Minimum of two criteria Yes Body Fat Depletion Moderate depletion (severe) Muscle Mass Moderate Depletion (severe) Fluid Accumulation Mild (non-severe) Reduced Director [employer] Strength Measurably Reduced (severe) #1 Nutrition Diagnosis Malnutrition Etiology COPD As Evidenced by Signs and Symptoms Pt wt loss but unsure of amoun (BMI:16.7), muscle and fat depletion, weak vendor representatives strength and fluid accumulation Is patient on ventilator? No Is Patient Ambulatory and/or Out of Bed No REE-([facility]-confined to bed) 1567.896 Kcal/Kg value to use for calculation 35 Approximate Energy Requirements Using 1904 kcal/Kg Calculation Used for Recommendations Kcal/kg Additional Notes Protein needs are 65-82g (1.2- 1.5g/kg) Fluid needs are 1ml/kcal Nutrition Intervention Change Diet Order: Continue Add Supplement/Snack (indicate name/kcal Ensure [place]live [place] BID /protein ) Provides kCal: 700 Provides Protein (gm) 40 Goal #1 Meet at least 80% of kcal and protein needs Anticipated Discharge Needs: Cardiac diet with ONS BID to TID Follow-Up By: 06/20/19 Additional Comments Follow for intakes
[2019-06-19 08:15] LABS: Hematocrit 30.8 % (35.5-45.6); Hemoglobin 9.9 gm/dl (11.8-15.2); Mean Corpuscular HGB Conc 32 % (32-34); Mean Corpuscular Volume 87 fl (84-94); Platelet Count 188 K/mm3 (140-440); Red Blood Count 3.56 M/mm3 (3.65-5.03)
[2019-06-19 08:21] LABS: Red Cell Distribution Width 20.3 % (13.2-15.2)
[2019-06-19 08:37] LABS: BUN/Creatinine Ratio 20; Blood Urea Nitrogen 24 mg/dL (9-20); Calcium 8.2 mg/dL (8.4-10.2); Hemolysis Index 12
[2019-06-19 09:10] LABS: Monocytes % (Manual) 0 % (0.0-7.3); Total Cells Counted 100
[2019-06-19 09:11] LABS: Band Neutrophils # (Manual) 0.1 K/mm3; Basophils % (Manual) 0 % (0.0-1.8); Eosinophils % (Manual) 0 % (0.0-4.3); Schistocytes Rare; Target Cells Few
[2019-06-19 09:12] LABS: Burr Cells Rare; Hypochromasia Few; Large Platelets Few; Platelet Estimate Consistent w Auto
[2019-06-19] MEDS: allopurinoL 300 MG TAB PO SCH (09:50)
[2019-06-19] MEDS: APIXABAN 5 MG TAB PO SCH ×2 (09:50→21:23)
[2019-06-19] MEDS: TAMSULOSIN 0.4 MG CAP PO SCH (09:50)
[2019-06-19] MEDS: FINASTERIDE 5 MG TAB PO SCH (09:50)
[2019-06-19] MEDS: METOPROLOL SUCCINATE XL 100 MG TAB PO SCH (09:51)
[2019-06-19] MEDS: hydrALAZINE 25 MG TAB PO SCH ×5 (14:14→21:24)
[2019-06-19] MEDS ORDERED: ALBUTEROL 2.5 MG/3 ML NEBU IH PRN (14:37)
[2019-06-19] MEDS: VANCOMYCIN/NS 1 GM/250 ML 1 GM/250 ML BAG IV SCH (18:20)
[2019-06-19] MEDS ORDERED: ALBUTEROL 2.5 MG/3 ML NEBU IH SCH (20:00)
[2019-06-19] MEDS: IPRATROPIUM/ALBUTEROL SULFATE 3 ML AMPUL.NEB IH SCH (21:53)
[2019-06-20] MEDS: SODIUM CHLORIDE 0.9% 1000 ML 1,000 ML IV SCH ×3 (01:09→18:57)
[2019-06-20] MEDS: hydrALAZINE 25 MG TAB PO SCH ×3 (05:39→21:42)
[2019-06-20 05:48] LABS: Eosinophils # (Auto) 0.1 K/mm3 (0.0-0.4); Eosinophils % (Auto) 0.7 % (0.0-4.3); Hematocrit 28.1 % (35.5-45.6); Hemoglobin 9.5 gm/dl (11.8-15.2); Lymphocytes # (Auto) 0.5 K/mm3 (1.2-5.4); Lymphocytes % (Auto) 5.7 % (13.4-35.0); Mean Corpuscular HGB Conc 34 % (32-34); Mean Corpuscular Volume 85 fl (84-94); Monocytes # (Auto) 0.5 K/mm3 (0.0-0.8); Monocytes % (Auto) 6.4 % (0.0-7.3); Platelet Count 158 K/mm3 (140-440); Red Blood Count 3.29 M/mm3 (3.65-5.03); Red Cell Distribution Width 19.8 % (13.2-15.2)
[2019-06-20 06:10] LABS: BUN/Creatinine Ratio 19; Blood Urea Nitrogen 21 mg/dL (9-20); Calcium 8.2 mg/dL (8.4-10.2); Hemolysis Index 12
[2019-06-20] MEDS: IPRATROPIUM/ALBUTEROL SULFATE 3 ML AMPUL.NEB IH SCH ×3 (07:24→23:15)
--- NOTE | 2019-06-20 07:46 | Progress Note ---
Assessment and Plan Assessment and plan: Sepsis. Present on admission. Patient meets criteria given the leukocytosis, tachycardia and diagnosis of pneumonia. Continue antibiotics and follow-up blood cultures. RML/RLL pneumonia. As above. Follow-up serial chest x-ray. Acute COPD exacerbation. Continue IV steroids, IV antibiotics and bro nchodilators/nebulizers. History of lung CA. Patient is s/p left-sided lobectomy Acute hypoxemic respiratory failure. Etiology secondary to above. Continue O2 and BiPAP as clinically indicated. Hypertension. Continue antihypertensive medications. Multinodular goiter. Check TSH, T3 and T4. Consider thyroid scan DVT prophylaxis. Continue anticoagulants. Disposition. I called the daughter for updates at [phone] but no answer History Interval history: No new issues overnight. Hospitalist Physical - Constitutional Vitals: Temp Pulse Resp BP Pulse Ox 98.4 F 62 20 118/47 100 06/20/19 07:21 06/20/19 07:21 06/20/19 07:21 06/20/19 07:21 06/20/19 07:21 General appearance: Present: no acute distress, well-nourished - EENT Eyes: Present: PERRL, EOM intact ENT: hearing intact, clear oral mucosa, dentition normal - Neck Neck: Present: supple, normal ROM - Respiratory Respiratory effort: normal Respiratory: bilateral: CTA - Cardiovascular Rhythm: regular Heart Sounds: Present: S1 & S2. Absent: gallop, rub - Extremities Extremities: no ischemia, No edema, Full ROM - Abdominal General gastrointestinal: soft, non-tender, non-distended, normal bowel sounds - Integumentary Integumentary: Present: clear, warm, dry - Neurologic Neurologic: CNII-XII intact, moves all extremities Results - Labs CBC & Chem 7: 06/20/19 04:54 06/20/19 04:54 Labs: Laboratory Last Values WBC 8.2 K/mm3 (4.5-11.0) 06/20/19 04:54 RBC 3.29 M/mm3 (3.65-5.03) L 06/20/19 04:54 Hgb 9.5 gm/dl (11.8-15.2) L 06/20/19 04:54 Hct 28.1 % (35.5-45.6) L 06/20/19 04:54 MCV 85 fl (84-94) 06/20/19 04:54 MCH 29 pg (28-32) 06/20/19 04:54 MCHC 34 % (32-34) 06/20/19 04:54 RDW 19.8 % (13.2-15.2) H 06/20/19 04:54 Plt Count 158 K/mm3 (140-440) 06/20/19 04:54 Lymph % (Auto) 5.7 % (13.4-35.0) L 06/20/19 04:54 Bell % (Auto) 6.4 % (0.0-7.3) 06/20/19 04:54 Eos % (Auto) 0.7 % (0.0-4.3) 06/20/19 04:54 Baso % (Auto) 0.0 % (0.0-1.8) 06/20/19 04:54 Lymph # 0.5 K/mm3 (1.2-5.4) L 06/20/19 04:54 Bell # 0.5 K/mm3 (0.0-0.8) 06/20/19 04:54 Eos # 0.1 K/mm3 (0.0-0.4) 06/20/19 04:54 Baso # 0.0 K/mm3 (0.0-0.1) 06/20/19 04:54 Add Manual Diff Complete 06/19/19 07:28 Total Counted 100 06/19/19 07:28 Seg Neutrophils % 87.2 % (40.0-70.0) H 06/20/19 04:54 Seg Neuts % (Manual) 97.0 % (40.0-70.0) H 06/19/19 07:28 Band Neutrophils % 1.0 % 06/19/19 07:28 Lymphocytes % (Manual) 2.0 % (13.4-35.0) L 06/19/19 07:28 Reactive Lymphs % (Man) 0 % 06/19/19 07:28 Monocytes % (Manual) 0 % (0.0-7.3) 06/19/19 07:28 Eosinophils % (Manual) 0 % (0.0-4.3) 06/19/19 07:28 Basophils % (Manual) 0 % (0.0-1.8) 06/19/19 07:28 Metamyelocytes % 0 % 06/19/19 07:28 Myelocytes % 0 % 06/19/19 07:28 Promyelocytes % 0 % 06/19/19 07:28 Blast Cells % 0 % 06/19/19 07:28 Nucleated RBC % Not Reportable 06/19/19 07:28 Seg Neutrophils # 7.1 K/mm3 (1.8-7.7) 06/20/19 04:54 Seg Neutrophils # Man 12.6 K/mm3 (1.8-7.7) H 06/19/19 07:28 Band Neutrophils # 0.1 K/mm3 06/19/19 07:28 Lymphocytes # (Manual) 0.3 K/mm3 (1.2-5.4) L 06/19/19 07:28 Abs React Lymphs (Man) 0.0 K/mm3 06/19/19 07:28 Monocytes # (Manual) 0.0 K/mm3 (0.0-0.8) 06/19/19 07:28 Eosinophils # (Manual) 0.0 K/mm3 (0.0-0.4) 06/19/19 07:28 Basophils # (Manual) 0.0 K/mm3 (0.0-0.1) 06/19/19 07:28 Metamyelocytes # 0.0 K/mm3 06/19/19 07:28 Myelocytes # 0.0 K/mm3 06/19/19 07:28 Promyelocytes # 0.0 K/mm3 06/19/19 07:28 Blast Cells # 0.0 K/mm3 06/19/19 07:28 WBC Morphology Not Reportable 06/19/19 07:28 Hypersegmented Neuts Not Reportable 06/19/19 07:28 Hyposegmented Neuts Not Reportable 06/19/19 07:28 Hypogranular Neuts Not Reportable 06/19/19 07:28 Smudge Cells Not Reportable 06/19/19 07:28 Toxic Granulation Not Reportable 06/19/19 07:28 Toxic Vacuolation Not Reportable 06/19/19 07:28 Dohle Bodies Not Reportable 06/19/19 07:28 Pelger-Huet Anomaly Not Reportable 06/19/19 07:28 Bong Rods Not Reportable 06/19/19 07:28 Platelet Estimate Consistent w auto 06/19/19 07:28 Clumped Platelets Not Reportable 06/19/19 07:28 Plt Clumps, EDTA Not Reportable 06/19/19 07:28 Large Platelets Few 06/19/19 07:28 Giant Platelets Not Reportable 06/19/19 07:28 Platelet Satelliting Not Reportable 06/19/19 07:28 Plt Morphology Comment Not Reportable 06/19/19 07:28 RBC Morphology Not Reportable 06/19/19 07:28 Dimorphic RBCs Not Reportable 06/19/19 07:28 Polychromasia Not Reportable 06/19/19 07:28 Hypochromasia Few 06/19/19 07:28 Poikilocytosis Not Reportable 06/19/19 07:28 Anisocytosis Not Reportable 06/19/19 07:28 Microcytosis Not Reportable 06/19/19 07:28 Macrocytosis Not Reportable 06/19/19 07:28 Spherocytes Not Reportable 06/19/19 07:28 Pappenheimer Bodies Not Reportable 06/19/19 07:28 Sickle Cells Not Reportable 06/19/19 07:28 Target Cells Few 06/19/19 07:28 Tear Drop Cells Not Reportable 06/19/19 07:28 Ovalocytes Not Reportable 06/19/19 07:28 Helmet Cells Not Reportable 06/19/19 07:28 [place] Bodies Not Reportable 06/19/19 07:28 [place] Rings Not Reportable 06/19/19 07:28 [place] Cells Rare 06/19/19 07:28 Bite Cells Not Reportable 06/19/19 07:28 Crenated Cell Not Reportable 06/19/19 07:28 Elliptocytes Few 06/19/19 07:28 Acanthocytes (Spur) Not Reportable 06/19/19 07:28 Rouleaux Not Reportable 06/19/19 07:28 Hemoglobin C Crystals Not Reportable 06/19/19 07:28 Schistocytes Rare 06/19/19 07:28 Malaria parasites Not Reportable 06/19/19 07:28 Niels Bodies Not Reportable 06/19/19 07:28 Hem Pathologist Commnt No 06/19/19 07:28 PT 21.0 Sec. (12.2-14.9) H 06/18/19 05:59 INR 1.78 (0.87-1.13) H 06/18/19 05:59 APTT 41.8 Sec. (24.2-36.6) H 06/18/19 05:59 POC ABG pH 7.543 (7.35-7.45) H 06/17/19 22:08 POC ABG pCO2 28.4 (35-45) L 06/17/19 22:08 POC ABG pO2 80 (80-105) 06/17/19 22:08 POC ABG HCO3 24.4 (22-26 mml/L) 06/17/19 22:08 POC ABG Total CO2 25 (23-27mmol/L) 06/17/19 22:08 POC ABG O2 Sat 97 06/17/19 22:08 POC ABG Base Excess 2 ((-2) - (+3)mmol/L) 06/17/19 22:08 FiO2 36 % 06/17/19 22:08 Sodium 141 mmol/L (137-145) 06/20/19 04:54 Potassium 3.5 mmol/L (3.6-5.0) L 06/20/19 04:54 Chloride 109.3 mmol/L (98-107) H 06/20/19 04:54 Carbon Dioxide 18 mmol/L (22-30) L 06/20/19 04:54 Anion Gap 17 mmol/L 06/20/19 04:54 BUN 21 mg/dL (9-20) H 06/20/19 04:54 Creatinine 1.1 mg/dL (0.8-1.5) 06/20/19 04:54 Estimated GFR > 60 ml/min 06/20/19 04:54 BUN/Creatinine Ratio 19 % 06/20/19 04:54 Glucose 100 mg/dL (75-100) 06/20/19 04:54 Calcium 8.2 mg/dL (8.4-10.2) L 06/20/19 04:54 Total Bilirubin 0.70 mg/dL (0.1-1.2) 06/17/19 16:36 AST 18 units/L (5-40) 06/17/19 16:36 ALT 8 units/L (7-56) 06/17/19 16:36 Alkaline Phosphatase 74 units/L (35-129) 06/17/19 16:36 Troponin T 0.037 ng/mL (0.00-0.029) H 06/17/19 18:53 NT-Pro-B Natriuret Pep 5019 pg/mL (0-900) H 06/17/19 18:53 Total Protein 8.4 g/dL (6.3-8.2) H 06/17/19 16:36 Albumin 3.2 g/dL (3.9-5) L 06/17/19 16:36 Albumin/Globulin Ratio 0.6 % 06/17/19 16:36 Triglycerides 53 mg/dL (2-149) 06/17/19 16:36 Cholesterol 91 mg/dL (50-199) 06/17/19 16:36 LDL Cholesterol Direct 39 mg/dL (50-130) L 06/17/19 16:36 HDL Cholesterol 49 mg/dL (40-59) 06/17/19 16:36 Cholesterol/HDL Ratio 1.85 % 06/17/19 16:36 TSH 2.100 mlU/mL (0.270-4.200) 06/19/19 08:32 Free T4 1.18 ng/dL (0.76-1.46) 06/19/19 08:32 Urine Color Yellow (Yellow) 06/17/19 18:25 Urine Turbidity Clear (Clear) 06/17/19 18:25 Urine pH 5.0 (5.0-7.0) 06/17/19 18:25 Ur Specific [place] 1.015 (1.003-1.030) 06/17/19 18:25 Urine Protein 30 mg/dl mg/dL (Negative) 06/17/19 18:25 Urine Glucose (UA) Neg mg/dL (Negative) 06/17/19 18:25 Urine Ketones Neg mg/dL (Negative) 06/17/19 18:25 Urine Blood Sm (Negative) 06/17/19 18:25 Urine Nitrite Pos (Negative) 06/17/19 18:25 Urine Bilirubin Neg (Negative) 06/17/19 18:25 Urine Urobilinogen < 2.0 mg/dL (<2.0) 06/17/19 18:25 Ur Leukocyte Esterase Tr (Negative) 06/17/19 18:25 Urine WBC (Auto) 11.0 /HPF (0.0-6.0) H 06/17/19 18:25 Urine RBC (Auto) 1.0 /HPF (0.0-6.0) 06/17/19 18:25 U Epithel Cells (Auto) 1.0 /HPF (0-13.0) 06/17/19 18:25 Urine Bacteria (Auto) 2+ /HPF (Negative) 06/17/19 18:25 Urine Mucus Few /HPF 06/17/19 18:25 Active Medications - Current Medications Current Medications: Generic Name Dose Route Start Last Admin Trade Name Freq PRN Reason Stop Dose Admin Acetaminophen 650 mg 06/17/19 23:25 Tylenol PO Q4H PRN Pain MILD(1-3)/Fever >100.5/LEAHY Albuterol 2.5 mg 06/19/19 14:37 Proventil IH Q4HRT PRN Shortness Of Breath Albuterol/Ipratropium 1 ampul 06/19/19 20:00 06/20/19 07:24 Duoneb *Not For Prn Use* IH 1 ampul TIDRT JON Administration Allopurinol 300 mg 06/18/19 10:00 06/19/19 09:50 Zyloprim PO 300 mg QDAY JON Administration Apixaban 5 mg 06/18/19 10:00 06/19/19 21:23 Eliquis PO 5 mg Q12HR JON Administration Protocol Atorvastatin Calcium 40 mg 06/18/19 22:00 06/19/19 21:23 Lipitor PO 40 mg QHS JON Administration Finasteride 5 mg 06/18/19 10:00 06/19/19 09:50 Proscar PO 5 mg DAILY JON Administration Hydralazine HCl 25 mg 06/18/19 14:00 06/20/19 05:39 Apresoline PO 25 mg Q8HR JON Administration Sodium Chloride 1,000 mls @ 125 mls/hr 06/17/19 23:30 06/20/19 01:09 Nacl 0.9% 1000 Ml IV 125 mls/hr DIRECT JON Administration Levofloxacin/Dextrose 750 mg in 150 mls @ 100 mls/hr 06/18/19 10:00 06/19/19 09:50 Levaquin 750mg/150ml IV 100 mls/hr Q24HR JON Administration Protocol Vancomycin HCl 1 gm in 250 mls @ 166.667 mls/hr 06/18/19 19:00 06/19/19 18:20 Vancomycin/Ns 1 Gm/250 Ml IV 166.667 mls/hr Q24H JON Administration Magnesium Hydroxide 30 ml 06/17/19 23:25 Milk Of Magnesia PO Q4H PRN Constipation Metoprolol Succinate 100 mg 06/18/19 10:00 06/19/19 09:51 Metoprolol Xl PO Not Given QDAY JON Morphine Sulfate 2 mg 06/17/19 23:25 Morphine IV Q4H PRN Pain, Moderate (4-6) Ondansetron HCl 4 mg 06/17/19 23:25 Zofran IV Q8H PRN Nausea And Vomiting Sodium Chloride 10 ml 06/18/19 10:00 06/19/19 21:23 Sodium Chloride Flush Syringe 10 Ml IV 10 ml BID JON Administration Sodium Chloride 10 ml 06/17/19 23:25 06/18/19 02:10 Sodium Chloride Flush Syringe 10 Ml IV 10 ml PRN PRN Administration LINE FLUSH Tamsulosin HCl 0.4 mg 06/18/19 10:00 06/19/19 09:50 Flomax PO 0.4 mg QDAY JON Administration Nutrition/Malnutrition Assess - Dietary Evaluation Nutrition/Malnutrition Findings: Nutrition Notes Start: 06/18/19 11:39 Freq: Status: Active Protocol: Document 06/18/19 11:39 LP (Rec: 06/18/19 11:46 LP [id number]) Nutrition Notes Need for Assessment generated from: occupational therapist home based Initial or Follow up Assessment Current Diagnosis COPD,Hypertension Other Pertinent Diagnosis Pneu, left lobectomy, Hx lung CA Current Diet Cardiac Labs/Tests BUN 24 BG 106 Pro BNP 5019 Pertinent Medications NS at 125ml/hr Height 5 ft 11 in Weight 54.4 kg [place] Body Weight (kg) 78.18 BMI 16.7 Weight Status Underweight Subjective/Other Information Screen for MST. 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 Pt unaware of UBW or amount lost. Pt consumed 25% of breakfast this AM. Pt on venturimask. Burn Absent GI Symptoms None Current % PO Poor (25-49%) Minimum of two criteria Yes Body Fat Depletion Moderate depletion (severe) Muscle Mass Moderate Depletion (severe) Fluid Accumulation Mild (non-severe) Reduced Key Account Manager Strength Measurably Reduced (severe) #1 Nutrition Diagnosis Malnutrition Etiology COPD As Evidenced by Signs and Symptoms Pt wt loss but unsure of [place]oun (BMI:16.7), muscle and fat depletion, weak content publisher strength and fluid accumulation Is patient on ventilator? No Is Patient Ambulatory and/or Out of Bed No [facility] 1567.896 Kcal/Kg value to use for calculation 35 Approximate Energy Requirements Using 1904 kcal/Kg Calculation Used for Recommendations Kcal/kg Additional Notes Protein needs are 65-82g (1.2- 1.5g/kg) Fluid needs are 1ml/kcal Nutrition Intervention Change Diet Order: Continue Add Supplement/Snack (indicate name/kcal Ensure Enlive [place] BID /protein ) Provides kCal: 700 Provides Protein (gm) 40 Goal #1 Meet at least 80% of kcal and protein needs Anticipated Discharge Needs: Cardiac diet with ONS BID to TID Follow-Up By: 06/20/19 Additional Comments Follow for intakes
[2019-06-20] MEDS: FINASTERIDE 5 MG TAB PO SCH (09:02)
[2019-06-20] MEDS: APIXABAN 5 MG TAB PO SCH ×2 (09:02→21:42)
[2019-06-20] MEDS: TAMSULOSIN 0.4 MG CAP PO SCH (09:03)
[2019-06-20] MEDS: METOPROLOL SUCCINATE XL 100 MG TAB PO SCH (09:04)
[2019-06-20] MEDS: allopurinoL 300 MG TAB PO SCH (09:04)
[2019-06-20] MEDS: ACETAMINOPHEN 325 MG TAB PO PRN (15:48)
[2019-06-20] MEDS: VANCOMYCIN/NS 1 GM/250 ML 1 GM/250 ML BAG IV SCH (21:42)
[2019-06-21] MEDS: hydrALAZINE 25 MG TAB PO SCH ×3 (05:08→22:23)
[2019-06-21] MEDS: SODIUM CHLORIDE 0.9% 1000 ML 1,000 ML IV SCH ×2 (05:09→22:25)
[2019-06-21] MEDS: IPRATROPIUM/ALBUTEROL SULFATE 3 ML AMPUL.NEB IH SCH ×3 (09:15→19:46)
--- NOTE | 2019-06-21 09:21 | XRay Report ---
CHEST 1 VIEW 0842 hours INDICATION / CLINICAL INFORMATION: Follow-up pneumonia. COMPARISON: 06/17/2019 FINDINGS: SUPPORT DEVICES: Pacemaker device is unchanged. HEART / MEDIASTINUM: The cardiac shadow is obscured by left pneumonectomy changes but appears stable. LUNGS / PLEURA: Left pneumonectomy changes with diffuse opacification of the left lung is again noted . No significant change in the hyperaerated right lung with patchy infiltrates at the right hilum ext ending to the right lung base. No pleural fluid collection or pneumothorax. ADDITIONAL FINDINGS: No significant additional findings. IMPRESSION: No significant change. Signer Name: Ovidio Dominguez Jr, MD Signed: 06/21/2019 9:17 AM Workstation Name: [id number]
[2019-06-21] MEDS: APIXABAN 5 MG TAB PO SCH ×2 (09:35→22:23)
[2019-06-21] MEDS: TAMSULOSIN 0.4 MG CAP PO SCH (09:35)
[2019-06-21] MEDS: FINASTERIDE 5 MG TAB PO SCH (09:35)
[2019-06-21] MEDS: allopurinoL 300 MG TAB PO SCH (09:39)
[2019-06-21] MEDS: METOPROLOL SUCCINATE XL 100 MG TAB PO SCH (09:39)
[2019-06-21] MEDS: VANCOMYCIN 750 MG in SODIUM CHLORIDE 0.9% 250ML 250 ML IV SCH (12:14)
[2019-06-21 14:02] LABS: Basophils % (Auto) 0.5 % (0.0-1.8); Eosinophils # (Auto) 0.1 K/mm3 (0.0-0.4); Hematocrit 32.2 % (35.5-45.6); Hemoglobin 10.5 gm/dl (11.8-15.2); Lymphocytes # (Auto) 0.3 K/mm3 (1.2-5.4); Lymphocytes % (Auto) 6.1 % (13.4-35.0); Mean Corpuscular HGB Conc 33 % (32-34); Mean Corpuscular Volume 86 fl (84-94); Monocytes # (Auto) 0.3 K/mm3 (0.0-0.8); Monocytes % (Auto) 5.9 % (0.0-7.3); Platelet Count 183 K/mm3 (140-440); Red Blood Count 3.72 M/mm3 (3.65-5.03)
[2019-06-21 14:31] LABS: BUN/Creatinine Ratio TNR; Blood Urea Nitrogen TNR mg/dL (9-20)
[2019-06-21 14:32] LABS: Calcium TNR mg/dL (8.4-10.2); Hemolysis Index TNR
--- NOTE | 2019-06-21 15:15 | Progress Note ---
Assessment and Plan Assessment and plan: Sepsis. Present on admission. Patient meets criteria given the leukocytosis, tachycardia and diagnosis of pneumonia. Continue antibiotics and follow-up blood cultures. RML/RLL pneumonia. As above. Follow-up serial chest x-ray. Acute COPD exacerbation. Continue IV steroids, IV antibiotics and bro nchodilators/nebulizers. History of lung CA. Patient is s/p left-sided lobectomy Acute hypoxemic respiratory failure. Etiology secondary to above. Continue O2 and BiPAP as clinically indicated. Hypertension. Continue antihypertensive medications. Multinodular goiter. Check TSH, T3 and T4. Consider thyroid scan DVT prophylaxis. Continue anticoagulants. Poss dc home tomorrow History Interval history: less shortness of breath Hospitalist Physical - Physical exam Narrative exam: General appearance: Present: no acute distress, - EENT Eyes: Present: PERRL, EOM intact ENT: hearing intact, clear oral mucosa, dentition normal - Neck Neck: Present: supple, normal ROM - Respiratory Respiratory effort: normal Respiratory: bilateral: CTA - Cardiovascular Rhythm: regular Heart Sounds: Present: S1 & S2. Absent: gallop, rub - Extremities Extremities: no ischemia, No edema, Full ROM - Abdominal General gastrointestinal: soft, non-tender, non-distended, normal bowel sounds - Integumentary Integumentary: Present: clear, warm, dry - Neurologic Neurologic: CNII-XII intact, moves all extremities - Constitutional Vitals: Temp Pulse Resp BP Pulse Ox 97.8 F 96 H 18 99/75 100 06/21/19 13:40 06/21/19 13:42 06/21/19 13:40 06/21/19 13:42 06/21/19 13:40 General appearance: Present: no acute distress Results - Labs CBC & Chem 7: 06/21/19 13:01 06/21/19 15:06 Labs: Laboratory Last Values WBC 5.7 K/mm3 (4.5-11.0) 06/21/19 13:01 RBC 3.72 M/mm3 (3.65-5.03) 06/21/19 13:01 Hgb 10.5 gm/dl (11.8-15.2) L 06/21/19 13:01 Hct 32.2 % (35.5-45.6) L 06/21/19 13:01 MCV 86 fl (84-94) 06/21/19 13:01 MCH 28 pg (28-32) 06/21/19 13:01 MCHC 33 % (32-34) 06/21/19 13:01 RDW 20.0 % (13.2-15.2) H 06/21/19 13:01 Plt Count 183 K/mm3 (140-440) 06/21/19 13:01 Lymph % (Auto) 6.1 % (13.4-35.0) L 06/21/19 13:01 [place] % (Auto) 5.9 % (0.0-7.3) 06/21/19 13:01 Eos % (Auto) 2.0 % (0.0-4.3) 06/21/19 13:01 Baso % (Auto) 0.5 % (0.0-1.8) 06/21/19 13:01 Lymph # 0.3 K/mm3 (1.2-5.4) L 06/21/19 13:01 [place] # 0.3 K/mm3 (0.0-0.8) 06/21/19 13:01 Eos # 0.1 K/mm3 (0.0-0.4) 06/21/19 13:01 Baso # 0.0 K/mm3 (0.0-0.1) 06/21/19 13:01 Add Manual Diff Complete 06/19/19 07:28 Total Counted 100 06/19/19 07:28 Seg Neutrophils % 85.5 % (40.0-70.0) H 06/21/19 13:01 Seg Neuts % (Manual) 97.0 % (40.0-70.0) H 06/19/19 07:28 Band Neutrophils % 1.0 % 06/19/19 07:28 Lymphocytes % (Manual) 2.0 % (13.4-35.0) L 06/19/19 07:28 Reactive Lymphs % (Man) 0 % 06/19/19 07:28 Monocytes % (Manual) 0 % (0.0-7.3) 06/19/19 07:28 Eosinophils % (Manual) 0 % (0.0-4.3) 06/19/19 07:28 Basophils % (Manual) 0 % (0.0-1.8) 06/19/19 07:28 Metamyelocytes % 0 % 06/19/19 07:28 Myelocytes % 0 % 06/19/19 07:28 Promyelocytes % 0 % 06/19/19 07:28 Blast Cells % 0 % 06/19/19 07:28 Nucleated RBC % Not Reportable 06/19/19 07:28 Seg Neutrophils # 4.9 K/mm3 (1.8-7.7) 06/21/19 13:01 Seg Neutrophils # Man 12.6 K/mm3 (1.8-7.7) H 06/19/19 07:28 Band Neutrophils # 0.1 K/mm3 06/19/19 07:28 Lymphocytes # (Manual) 0.3 K/mm3 (1.2-5.4) L 06/19/19 07:28 Abs React Lymphs (Man) 0.0 K/mm3 06/19/19 07:28 Monocytes # (Manual) 0.0 K/mm3 (0.0-0.8) 06/19/19 07:28 Eosinophils # (Manual) 0.0 K/mm3 (0.0-0.4) 06/19/19 07:28 Basophils # (Manual) 0.0 K/mm3 (0.0-0.1) 06/19/19 07:28 Metamyelocytes # 0.0 K/mm3 06/19/19 07:28 Myelocytes # 0.0 K/mm3 06/19/19 07:28 Promyelocytes # 0.0 K/mm3 06/19/19 07:28 Blast Cells # 0.0 K/mm3 06/19/19 07:28 WBC Morphology Not Reportable 06/19/19 07:28 Hypersegmented Neuts Not Reportable 06/19/19 07:28 Hyposegmented Neuts Not Reportable 06/19/19 07:28 Hypogranular Neuts Not Reportable 06/19/19 07:28 Smudge Cells Not Reportable 06/19/19 07:28 Toxic Granulation Not Reportable 06/19/19 07:28 Toxic Vacuolation Not Reportable 06/19/19 07:28 Dohle Bodies Not Reportable 06/19/19 07:28 Pelger-Huet Anomaly Not Reportable 06/19/19 07:28 Bong Rods Not Reportable 06/19/19 07:28 Platelet Estimate Consistent w auto 06/19/19 07:28 Clumped Platelets Not Reportable 06/19/19 07:28 Plt Clumps, EDTA Not Reportable 06/19/19 07:28 Large Platelets Few 06/19/19 07:28 Giant Platelets Not Reportable 06/19/19 07:28 Platelet Satelliting Not Reportable 06/19/19 07:28 Plt Morphology Comment Not Reportable 06/19/19 07:28 RBC Morphology Not Reportable 06/19/19 07:28 Dimorphic RBCs Not Reportable 06/19/19 07:28 Polychromasia Not Reportable 06/19/19 07:28 Hypochromasia Few 06/19/19 07:28 Poikilocytosis Not Reportable 06/19/19 07:28 Anisocytosis Not Reportable 06/19/19 07:28 Microcytosis Not Reportable 06/19/19 07:28 Macrocytosis Not Reportable 06/19/19 07:28 Spherocytes Not Reportable 06/19/19 07:28 Pappenheimer Bodies Not Reportable 06/19/19 07:28 Sickle Cells Not Reportable 06/19/19 07:28 Target Cells Few 06/19/19 07:28 Tear Drop Cells Not Reportable 06/19/19 07:28 Ovalocytes Not Reportable 06/19/19 07:28 Helmet Cells Not Reportable 06/19/19 07:28 [place] Bodies Not Reportable 06/19/19 07:28 [place] Rings Not Reportable 06/19/19 07:28 [place] Cells Rare 06/19/19 07:28 Bite Cells Not Reportable 06/19/19 07:28 Crenated Cell Not Reportable 06/19/19 07:28 Elliptocytes Few 06/19/19 07:28 Acanthocytes (Spur) Not Reportable 06/19/19 07:28 Rouleaux Not Reportable 06/19/19 07:28 Hemoglobin C Crystals Not Reportable 06/19/19 07:28 Schistocytes Rare 06/19/19 07:28 Malaria parasites Not Reportable 06/19/19 07:28 Niels Bodies Not Reportable 06/19/19 07:28 Hem Pathologist Commnt No 06/19/19 07:28 PT 21.0 Sec. (12.2-14.9) H 06/18/19 05:59 INR 1.78 (0.87-1.13) H 06/18/19 05:59 APTT 41.8 Sec. (24.2-36.6) H 06/18/19 05:59 POC ABG pH 7.543 (7.35-7.45) H 06/17/19 22:08 POC ABG pCO2 28.4 (35-45) L 06/17/19 22:08 POC ABG pO2 80 (80-105) 06/17/19 22:08 POC ABG HCO3 24.4 (22-26 mml/L) 06/17/19 22:08 POC ABG Total CO2 25 (23-27mmol/L) 06/17/19 22:08 POC ABG O2 Sat 97 06/17/19 22:08 POC ABG Base Excess 2 ((-2) - (+3)mmol/L) 06/17/19 22:08 FiO2 36 % 06/17/19 22:08 Sodium TNR 06/21/19 13:01 Potassium TNR 06/21/19 13:01 Chloride TNR 06/21/19 13:01 Carbon Dioxide TNR 06/21/19 13:01 Anion Gap TNR 06/21/19 13:01 BUN TNR 06/21/19 13:01 Creatinine TNR 06/21/19 13:01 Estimated GFR TNR 06/21/19 13:01 BUN/Creatinine Ratio TNR 06/21/19 13:01 Glucose TNR 06/21/19 13:01 Calcium TNR 06/21/19 13:01 Total Bilirubin 0.70 mg/dL (0.1-1.2) 06/17/19 16:36 AST 18 units/L (5-40) 06/17/19 16:36 ALT 8 units/L (7-56) 06/17/19 16:36 Alkaline Phosphatase 74 units/L (35-129) 06/17/19 16:36 Troponin T 0.037 ng/mL (0.00-0.029) H 06/17/19 18:53 NT-Pro-B Natriuret Pep 5019 pg/mL (0-900) H 06/17/19 18:53 Total Protein 8.4 g/dL (6.3-8.2) H 06/17/19 16:36 Albumin 3.2 g/dL (3.9-5) L 06/17/19 16:36 Albumin/Globulin Ratio 0.6 % 06/17/19 16:36 Triglycerides 53 mg/dL (2-149) 06/17/19 16:36 Cholesterol 91 mg/dL (50-199) 06/17/19 16:36 LDL Cholesterol Direct 39 mg/dL (50-130) L 06/17/19 16:36 HDL Cholesterol 49 mg/dL (40-59) 06/17/19 16:36 Cholesterol/HDL Ratio 1.85 % 06/17/19 16:36 TSH 2.100 mlU/mL (0.270-4.200) 06/19/19 08:32 Free T4 1.18 ng/dL (0.76-1.46) 06/19/19 08:32 Free T3 Index 1.7 pg/mL (2.3-4.2) L 06/19/19 08:32 Urine Color Yellow (Yellow) 06/17/19 18:25 Urine Turbidity Clear (Clear) 06/17/19 18:25 Urine pH 5.0 (5.0-7.0) 06/17/19 18:25 Ur Specific [place] 1.015 (1.003-1.030) 06/17/19 18:25 Urine Protein 30 mg/dl mg/dL (Negative) 06/17/19 18:25 Urine Glucose (UA) Neg mg/dL (Negative) 06/17/19 18:25 Urine Ketones Neg mg/dL (Negative) 06/17/19 18:25 Urine Blood Sm (Negative) 06/17/19 18:25 Urine Nitrite Pos (Negative) 06/17/19 18:25 Urine Bilirubin Neg (Negative) 06/17/19 18:25 Urine Urobilinogen < 2.0 mg/dL (<2.0) 06/17/19 18:25 Ur Leukocyte Esterase Tr (Negative) 06/17/19 18:25 Urine WBC (Auto) 11.0 /HPF (0.0-6.0) H 06/17/19 18:25 Urine RBC (Auto) 1.0 /HPF (0.0-6.0) 06/17/19 18:25 U Epithel Cells (Auto) 1.0 /HPF (0-13.0) 06/17/19 18:25 Urine Bacteria (Auto) 2+ /HPF (Negative) 06/17/19 18:25 Urine Mucus Few /HPF 06/17/19 18:25 Vancomycin Trough 8.7 ug/mL (5.0-20.0) 06/20/19 16:43 Active Medications - Current Medications Current Medications: Generic Name Dose Route Start Last Admin Trade Name Freq PRN Reason Stop Dose Admin Acetaminophen 650 mg 06/17/19 23:25 06/20/19 15:48 Tylenol PO 650 mg Q4H PRN Administration Pain MILD(1-3)/Fever >100.5/LEAHY Albuterol 2.5 mg 06/19/19 14:37 Proventil IH Q4HRT PRN Shortness Of Breath Albuterol/Ipratropium 1 ampul 06/19/19 20:00 06/21/19 15:07 Duoneb *Not For Prn Use* IH 1 ampul TIDRT JON Administration Allopurinol 300 mg 06/18/19 10:00 06/21/19 09:39 Zyloprim PO 300 mg QDAY JON Administration Apixaban 5 mg 06/18/19 10:00 06/21/19 09:35 Eliquis PO 5 mg Q12HR JON Administration Protocol Atorvastatin Calcium 40 mg 06/18/19 22:00 06/20/19 21:42 Lipitor PO 40 mg QHS JON Administration Finasteride 5 mg 06/18/19 10:00 06/21/19 09:35 Proscar PO 5 mg DAILY JON Administration Hydralazine HCl 25 mg 06/18/19 14:00 06/21/19 13:42 Apresoline PO Not Given Q8HR JON Sodium Chloride 1,000 mls @ 125 mls/hr 06/17/19 23:30 06/21/19 05:09 Nacl 0.9% 1000 Ml IV 125 mls/hr DIRECT JON Administration Levofloxacin/Dextrose 750 mg in 150 mls @ 100 mls/hr 06/18/19 10:00 06/21/19 09:35 Levaquin 750mg/150ml IV 100 mls/hr Q24HR JON Administration Protocol Vancomycin HCl 750 mg/ Sodium 265 mls @ 166.667 mls/hr 06/21/19 12:00 06/21/19 12:14 Chloride IV 166.667 mls/hr Q12H JON Administration Magnesium Hydroxide 30 ml 06/17/19 23:25 Milk Of Magnesia PO Q4H PRN Constipation Metoprolol Succinate 100 mg 06/18/19 10:00 06/21/19 09:39 Metoprolol Xl PO 100 mg QDAY JON Administration Morphine Sulfate 2 mg 06/17/19 23:25 Morphine IV Q4H PRN Pain, Moderate (4-6) Ondansetron HCl 4 mg 06/17/19 23:25 Zofran IV Q8H PRN Nausea And Vomiting Sodium Chloride 10 ml 06/18/19 10:00 06/21/19 09:37 Sodium Chloride Flush Syringe 10 Ml IV 10 ml BID JON Administration Sodium Chloride 10 ml 06/17/19 23:25 06/18/19 02:10 Sodium Chloride Flush Syringe 10 Ml IV 10 ml PRN PRN Administration LINE FLUSH Tamsulosin HCl 0.4 mg 06/18/19 10:00 06/21/19 09:35 Flomax PO 0.4 mg QDAY JON Administration Nutrition/Malnutrition Assess - Dietary Evaluation Nutrition/Malnutrition Findings: Nutrition Notes Start: 06/18/19 11:39 Freq: Status: Active Protocol: Document 06/20/19 12:47 LP (Rec: 06/20/19 12:49 LP [id number]) Nutrition Notes Initial or Follow up Reassessment Current Diagnosis COPD,Sepsis,Hypertension Other Pertinent Diagnosis Pneu, left lobectomy, Hx lung CA, goiter Current Diet Cardiac with Ensure Enlive BID Labs/Tests K 3.5 Pertinent Medications Reviewed Height 5 ft 11 in Weight 54.4 kg [place] Body Weight (kg) 78.18 BMI 16.7 Weight Status Underweight Subjective/Other Information Pt consuming 75% of meals and drinking Ensure shakes. Percent of energy/protein needs met: 100%/100% Burn Absent Trauma Absent GI Symptoms None Current % PO Good (75-100%) Minimum of two criteria Yes Body Fat Depletion Moderate depletion (severe) Muscle Mass Moderate Depletion (severe) Fluid Accumulation Mild (non-severe) Reduced [place] Strength Measurably Reduced (severe) #1 Nutrition Diagnosis Malnutrition Diagnosis Progress(for reassessment Continues documentation) Is patient on ventilator? No Is Patient Ambulatory and/or Out of Bed No REE-([facility]-confined to bed) 1567.896 Kcal/Kg value to use for calculation 35 Approximate Energy Requirements Using 1904 kcal/Kg Calculation Used for Recommendations Kcal/kg Additional Notes Protein needs are 65-82g (1.2- 1.5g/kg) Fluid needs are 1ml/kcal Nutrition Intervention Change Diet Order: Continue Add Supplement/Snack (indicate name/kcal Ensure Enlive [place] BID /protein ) Provides kCal: 700 Provides Protein (gm) 40 Goal #1 Meet at least 80% of kcal and protein needs Anticipated Discharge Needs: Cardiac diet with ONS BID to TID Follow-Up By: 06/24/19 Additional Comments Follow for stable intakes
[2019-06-21 15:42] LABS: BUN/Creatinine Ratio 16; Blood Urea Nitrogen 14 mg/dL (9-20); Calcium 8.3 mg/dL (8.4-10.2); Hemolysis Index 9
[2019-06-22] MEDS: VANCOMYCIN 750 MG in SODIUM CHLORIDE 0.9% 250ML 250 ML IV SCH ×2 (01:28→11:30)
[2019-06-22] MEDS: ACETAMINOPHEN 325 MG TAB PO PRN ×3 (03:08→20:28)
[2019-06-22] MEDS: hydrALAZINE 25 MG TAB PO SCH (05:50)
[2019-06-22] MEDS: IPRATROPIUM/ALBUTEROL SULFATE 3 ML AMPUL.NEB IH SCH ×3 (07:33→21:31)
[2019-06-22] MEDS: SODIUM CHLORIDE 0.9% 1000 ML 1,000 ML IV SCH ×2 (08:44→22:48)
[2019-06-22] MEDS: allopurinoL 300 MG TAB PO SCH (09:18)
[2019-06-22] MEDS: TAMSULOSIN 0.4 MG CAP PO SCH (09:18)
[2019-06-22] MEDS: APIXABAN 5 MG TAB PO SCH ×2 (09:18→21:12)
[2019-06-22] MEDS: FINASTERIDE 5 MG TAB PO SCH (09:23)
[2019-06-22] MEDS: METOPROLOL SUCCINATE XL 100 MG TAB PO SCH (09:31)
--- NOTE | 2019-06-22 13:03 | Progress Note ---
Assessment and Plan Assessment and plan: Sepsis. Present on admission. Patient meets criteria given the leukocytosis, tachycardia and diagnosis of pneumonia. Blood cultures pos for strep pneumoniae Consult ID RML/RLL pneumonia. As above. Acute COPD exacerbation. Continue IV steroids, IV antibiotics and bronchodilators/nebulizers. History of lung CA. Patient is s/p left-sided lobectomy Acute hypoxemic respiratory failure. Etiology secondary to above. Continue O2 and BiPAP as clinically indicated. Hypertension. Continue antihypertensive medications. Multinodular goiter. Check TSH, T3 and T4. Consider thyroid scan DVT prophylaxis. Continue anticoagulants. History Interval history: less shortness of breath Positive blood cultures Hospitalist Physical - Physical exam Narrative exam: General appearance: Present: no acute distress, - EENT Eyes: Present: PERRL, EOM intact ENT: hearing intact, clear oral mucosa, dentition normal - Neck Neck: Present: supple, normal ROM - Respiratory Respiratory effort: normal Respiratory: bilateral: CTA - Cardiovascular Rhythm: regular Heart Sounds: Present: S1 & S2. Absent: gallop, rub - Extremities Extremities: no ischemia, No edema, Full ROM - Abdominal General gastrointestinal: soft, non-tender, non-distended, normal bowel sounds - Integumentary Integumentary: Present: clear, warm, dry - Neurologic Neurologic: CNII-XII intact, moves all extremities - Constitutional Vitals: Temp Pulse Resp BP Pulse Ox 99.0 F 68 20 74/49 100 06/22/19 08:15 06/22/19 08:15 06/22/19 08:15 06/22/19 09:31 06/22/19 10:00 General appearance: Present: no acute distress Results - Labs CBC & Chem 7: 06/21/19 13:01 06/21/19 15:06 Labs: Laboratory Last Values WBC 5.7 K/mm3 (4.5-11.0) 06/21/19 13:01 RBC 3.72 M/mm3 (3.65-5.03) 06/21/19 13:01 Hgb 10.5 gm/dl (11.8-15.2) L 06/21/19 13:01 Hct 32.2 % (35.5-45.6) L 06/21/19 13:01 MCV 86 fl (84-94) 06/21/19 13:01 MCH 28 pg (28-32) 06/21/19 13:01 MCHC 33 % (32-34) 06/21/19 13:01 RDW 20.0 % (13.2-15.2) H 06/21/19 13:01 Plt Count 183 K/mm3 (140-440) 06/21/19 13:01 Lymph % (Auto) 6.1 % (13.4-35.0) L 06/21/19 13:01 [place] % (Auto) 5.9 % (0.0-7.3) 06/21/19 13:01 Eos % (Auto) 2.0 % (0.0-4.3) 06/21/19 13:01 Baso % (Auto) 0.5 % (0.0-1.8) 06/21/19 13:01 Lymph # 0.3 K/mm3 (1.2-5.4) L 06/21/19 13:01 [place] # 0.3 K/mm3 (0.0-0.8) 06/21/19 13:01 Eos # 0.1 K/mm3 (0.0-0.4) 06/21/19 13:01 Baso # 0.0 K/mm3 (0.0-0.1) 06/21/19 13:01 Add Manual Diff Complete 06/19/19 07:28 Total Counted 100 06/19/19 07:28 Seg Neutrophils % 85.5 % (40.0-70.0) H 06/21/19 13:01 Seg Neuts % (Manual) 97.0 % (40.0-70.0) H 06/19/19 07:28 Band Neutrophils % 1.0 % 06/19/19 07:28 Lymphocytes % (Manual) 2.0 % (13.4-35.0) L 06/19/19 07:28 Reactive Lymphs % (Man) 0 % 06/19/19 07:28 Monocytes % (Manual) 0 % (0.0-7.3) 06/19/19 07:28 Eosinophils % (Manual) 0 % (0.0-4.3) 06/19/19 07:28 Basophils % (Manual) 0 % (0.0-1.8) 06/19/19 07:28 Metamyelocytes % 0 % 06/19/19 07:28 Myelocytes % 0 % 06/19/19 07:28 Promyelocytes % 0 % 06/19/19 07:28 Blast Cells % 0 % 06/19/19 07:28 Nucleated RBC % Not Reportable 06/19/19 07:28 Seg Neutrophils # 4.9 K/mm3 (1.8-7.7) 06/21/19 13:01 Seg Neutrophils # Man 12.6 K/mm3 (1.8-7.7) H 06/19/19 07:28 Band Neutrophils # 0.1 K/mm3 06/19/19 07:28 Lymphocytes # (Manual) 0.3 K/mm3 (1.2-5.4) L 06/19/19 07:28 Abs React Lymphs (Man) 0.0 K/mm3 06/19/19 07:28 Monocytes # (Manual) 0.0 K/mm3 (0.0-0.8) 06/19/19 07:28 Eosinophils # (Manual) 0.0 K/mm3 (0.0-0.4) 06/19/19 07:28 Basophils # (Manual) 0.0 K/mm3 (0.0-0.1) 06/19/19 07:28 Metamyelocytes # 0.0 K/mm3 06/19/19 07:28 Myelocytes # 0.0 K/mm3 06/19/19 07:28 Promyelocytes # 0.0 K/mm3 06/19/19 07:28 Blast Cells # 0.0 K/mm3 06/19/19 07:28 WBC Morphology Not Reportable 06/19/19 07:28 Hypersegmented Neuts Not Reportable 06/19/19 07:28 Hyposegmented Neuts Not Reportable 06/19/19 07:28 Hypogranular Neuts Not Reportable 06/19/19 07:28 Smudge Cells Not Reportable 06/19/19 07:28 Toxic Granulation Not Reportable 06/19/19 07:28 Toxic Vacuolation Not Reportable 06/19/19 07:28 Dohle Bodies Not Reportable 06/19/19 07:28 Pelger-Huet Anomaly Not Reportable 06/19/19 07:28 Bong Rods Not Reportable 06/19/19 07:28 Platelet Estimate Consistent w auto 06/19/19 07:28 Clumped Platelets Not Reportable 06/19/19 07:28 Plt Clumps, EDTA Not Reportable 06/19/19 07:28 Large Platelets Few 06/19/19 07:28 Giant Platelets Not Reportable 06/19/19 07:28 Platelet Satelliting Not Reportable 06/19/19 07:28 Plt Morphology Comment Not Reportable 06/19/19 07:28 RBC Morphology Not Reportable 06/19/19 07:28 Dimorphic RBCs Not Reportable 06/19/19 07:28 Polychromasia Not Reportable 06/19/19 07:28 Hypochromasia Few 06/19/19 07:28 Poikilocytosis Not Reportable 06/19/19 07:28 Anisocytosis Not Reportable 06/19/19 07:28 Microcytosis Not Reportable 06/19/19 07:28 Macrocytosis Not Reportable 06/19/19 07:28 Spherocytes Not Reportable 06/19/19 07:28 Pappenheimer Bodies Not Reportable 06/19/19 07:28 Sickle Cells Not Reportable 06/19/19 07:28 Target Cells Few 06/19/19 07:28 Tear Drop Cells Not Reportable 06/19/19 07:28 Ovalocytes Not Reportable 06/19/19 07:28 Helmet Cells Not Reportable 06/19/19 07:28 [place] Bodies Not Reportable 06/19/19 07:28 [place] Rings Not Reportable 06/19/19 07:28 [place] Cells Rare 06/19/19 07:28 Bite Cells Not Reportable 06/19/19 07:28 Crenated Cell Not Reportable 06/19/19 07:28 Elliptocytes Few 06/19/19 07:28 Acanthocytes (Spur) Not Reportable 06/19/19 07:28 Rouleaux Not Reportable 06/19/19 07:28 Hemoglobin C Crystals Not Reportable 06/19/19 07:28 Schistocytes Rare 06/19/19 07:28 Malaria parasites Not Reportable 06/19/19 07:28 Niels Bodies Not Reportable 06/19/19 07:28 Hem Pathologist Commnt No 06/19/19 07:28 PT 21.0 Sec. (12.2-14.9) H 06/18/19 05:59 INR 1.78 (0.87-1.13) H 06/18/19 05:59 APTT 41.8 Sec. (24.2-36.6) H 06/18/19 05:59 POC ABG pH 7.543 (7.35-7.45) H 06/17/19 22:08 POC ABG pCO2 28.4 (35-45) L 06/17/19 22:08 POC ABG pO2 80 (80-105) 06/17/19 22:08 POC ABG HCO3 24.4 (22-26 mml/L) 06/17/19 22:08 POC ABG Total CO2 25 (23-27mmol/L) 06/17/19 22:08 POC ABG O2 Sat 97 06/17/19 22:08 POC ABG Base Excess 2 ((-2) - (+3)mmol/L) 06/17/19 22:08 FiO2 36 % 06/17/19 22:08 Sodium 137 mmol/L (137-145) 06/21/19 15:06 Potassium 3.7 mmol/L (3.6-5.0) 06/21/19 15:06 Chloride 105.9 mmol/L (98-107) 06/21/19 15:06 Carbon Dioxide 21 mmol/L (22-30) L 06/21/19 15:06 Anion Gap 14 mmol/L 06/21/19 15:06 BUN 14 mg/dL (9-20) 06/21/19 15:06 Creatinine 0.9 mg/dL (0.8-1.5) 06/21/19 15:06 Estimated GFR > 60 ml/min 06/21/19 15:06 BUN/Creatinine Ratio 16 % 06/21/19 15:06 Glucose 98 mg/dL (75-100) 06/21/19 15:06 Calcium 8.3 mg/dL (8.4-10.2) L 06/21/19 15:06 Total Bilirubin 0.70 mg/dL (0.1-1.2) 06/17/19 16:36 AST 18 units/L (5-40) 06/17/19 16:36 ALT 8 units/L (7-56) 06/17/19 16:36 Alkaline Phosphatase 74 units/L (35-129) 06/17/19 16:36 Troponin T 0.037 ng/mL (0.00-0.029) H 06/17/19 18:53 NT-Pro-B Natriuret Pep 5019 pg/mL (0-900) H 06/17/19 18:53 Total Protein 8.4 g/dL (6.3-8.2) H 06/17/19 16:36 Albumin 3.2 g/dL (3.9-5) L 06/17/19 16:36 Albumin/Globulin Ratio 0.6 % 06/17/19 16:36 Triglycerides 53 mg/dL (2-149) 06/17/19 16:36 Cholesterol 91 mg/dL (50-199) 06/17/19 16:36 LDL Cholesterol Direct 39 mg/dL (50-130) L 06/17/19 16:36 HDL Cholesterol 49 mg/dL (40-59) 06/17/19 16:36 Cholesterol/HDL Ratio 1.85 % 06/17/19 16:36 TSH 2.100 mlU/mL (0.270-4.200) 06/19/19 08:32 Free T4 1.18 ng/dL (0.76-1.46) 06/19/19 08:32 Free T3 Index 1.7 pg/mL (2.3-4.2) L 06/19/19 08:32 Urine Color Yellow (Yellow) 06/17/19 18:25 Urine Turbidity Clear (Clear) 06/17/19 18:25 Urine pH 5.0 (5.0-7.0) 06/17/19 18:25 Ur Specific [place] 1.015 (1.003-1.030) 06/17/19 18:25 Urine Protein 30 mg/dl mg/dL (Negative) 06/17/19 18:25 Urine Glucose (UA) Neg mg/dL (Negative) 06/17/19 18:25 Urine Ketones Neg mg/dL (Negative) 06/17/19 18:25 Urine Blood Sm (Negative) 06/17/19 18:25 Urine Nitrite Pos (Negative) 06/17/19 18:25 Urine Bilirubin Neg (Negative) 06/17/19 18:25 Urine Urobilinogen < 2.0 mg/dL (<2.0) 06/17/19 18:25 Ur Leukocyte Esterase Tr (Negative) 06/17/19 18:25 Urine WBC (Auto) 11.0 /HPF (0.0-6.0) H 06/17/19 18:25 Urine RBC (Auto) 1.0 /HPF (0.0-6.0) 06/17/19 18:25 U Epithel Cells (Auto) 1.0 /HPF (0-13.0) 06/17/19 18:25 Urine Bacteria (Auto) 2+ /HPF (Negative) 06/17/19 18:25 Urine Mucus Few /HPF 06/17/19 18:25 Vancomycin Trough 8.7 ug/mL (5.0-20.0) 06/20/19 16:43 Active Medications - Current Medications Current Medications: Generic Name Dose Route Start Last Admin Trade Name Freq PRN Reason Stop Dose Admin Acetaminophen 650 mg 06/17/19 23:25 06/22/19 08:43 Tylenol PO 650 mg Q4H PRN Administration Pain MILD(1-3)/Fever >100.5/LEAHY Albuterol 2.5 mg 06/19/19 14:37 Proventil IH Q4HRT PRN Shortness Of Breath Albuterol/Ipratropium 1 ampul 06/19/19 20:00 06/22/19 07:33 Duoneb *Not For Prn Use* IH 1 ampul TIDRT JON Administration Allopurinol 300 mg 06/18/19 10:00 06/22/19 09:18 Zyloprim PO 300 mg QDAY JON Administration Apixaban 5 mg 06/18/19 10:00 06/22/19 09:18 Eliquis PO 5 mg Q12HR JON Administration Protocol Atorvastatin Calcium 40 mg 06/18/19 22:00 06/21/19 22:24 Lipitor PO 40 mg QHS JON Administration Finasteride 5 mg 06/18/19 10:00 06/22/19 09:23 Proscar PO 5 mg DAILY JON Administration Sodium Chloride 1,000 mls @ 125 mls/hr 06/17/19 23:30 06/22/19 08:44 Nacl 0.9% 1000 Ml IV 125 mls/hr DIRECT JON Administration Levofloxacin/Dextrose 750 mg in 150 mls @ 100 mls/hr 06/18/19 10:00 06/22/19 09:18 Levaquin 750mg/150ml IV 100 mls/hr Q24HR JON Administration Protocol Vancomycin HCl 750 mg/ Sodium 265 mls @ 166.667 mls/hr 06/21/19 12:00 06/22/19 11:30 Chloride IV 166.667 mls/hr Q12H JON Administration Magnesium Hydroxide 30 ml 06/17/19 23:25 Milk Of Magnesia PO Q4H PRN Constipation Morphine Sulfate 2 mg 06/17/19 23:25 Morphine IV Q4H PRN Pain, Moderate (4-6) Ondansetron HCl 4 mg 06/17/19 23:25 Zofran IV Q8H PRN Nausea And Vomiting Sodium Chloride 10 ml 06/18/19 10:00 06/22/19 11:31 Sodium Chloride Flush Syringe 10 Ml IV 10 ml BID JON Administration Sodium Chloride 10 ml 06/17/19 23:25 06/18/19 02:10 Sodium Chloride Flush Syringe 10 Ml IV 10 ml PRN PRN Administration LINE FLUSH Tamsulosin HCl 0.4 mg 06/18/19 10:00 06/22/19 09:18 Flomax PO 0.4 mg QDAY JON Administration Nutrition/Malnutrition Assess - Dietary Evaluation Nutrition/Malnutrition Findings: Nutrition Notes Start: 06/18/19 11:39 Freq: Status: Active Protocol: Document 06/20/19 12:47 LP (Rec: 06/20/19 12:49 LP [email or web address]) Nutrition Notes Initial or Follow up Reassessment Current Diagnosis COPD,Sepsis,Hypertension Other Pertinent Diagnosis Pneu, left lobectomy, Hx lung CA, goiter Current Diet Cardiac with Ensure Enlive BID Labs/Tests K 3.5 Pertinent Medications Reviewed Height 5 ft 11 in Weight 54.4 kg [place] Body Weight (kg) 78.18 BMI 16.7 Weight Status Underweight Subjective/Other Information Pt consuming 75% of meals and drinking Ensure shakes. Percent of energy/protein needs met: 100%/100% Burn Absent Trauma Absent GI Symptoms None Current % PO Good (75-100%) Minimum of two criteria Yes Body Fat Depletion Moderate depletion (severe) Muscle Mass Moderate Depletion (severe) Fluid Accumulation Mild (non-severe) Reduced [employer] Strength Measurably Reduced (severe) #1 Nutrition Diagnosis Malnutrition Diagnosis Progress(for reassessment Continues documentation) Is patient on ventilator? No Is Patient Ambulatory and/or Out of Bed No REE-([facility]-confined to bed) 1567.896 Kcal/Kg value to use for calculation 35 Approximate Energy Requirements Using 1904 kcal/Kg Calculation Used for Recommendations Kcal/kg Additional Notes Protein needs are 65-82g (1.2- 1.5g/kg) Fluid needs are 1ml/kcal Nutrition Intervention Change Diet Order: Continue Add Supplement/Snack (indicate name/kcal Ensure Enlive [place] BID /protein ) Provides kCal: 700 Provides Protein (gm) 40 Goal #1 Meet at least 80% of kcal and protein needs Anticipated Discharge Needs: Cardiac diet with ONS BID to TID Follow-Up By: 06/24/19 Additional Comments Follow for stable intakes
--- NOTE | 2019-06-22 13:25 | Consultation ---
History of Present Illness - Reason for Consult Consult date: 06/22/19 Strep pneumoniae bacteremia Requesting physician: VIN GRIFFITH - History of Present Illness The patient is a 73-year-old male with COPD, left pneumonectomy due to lung cancer, hypertension and to the emergency room on 06/17/2019 with complaints of cough and shortness of breath associated with yellowish sputum production. He also had some chest discomfort with this. Chest x-ray and CT chest showed findings concerning for pneumonia along with leukocytosis. Patient was admitted to the hospital, started on empiric antibiotics and oxygen supplementation. Blood cultures grew Streptococcus pneumoniae and hence infectious diseases was consulted. Patient also has indwelling cardiac pacemaker. Has remained afebrile throughout hospitalization. Today, he is much better. Review of Systems: General: no fevers,chills or rigors HEENT: no new visual disturbance Respiratory: + cough, sputum and shortness of breath Cardiovascular: No chest pain, syncope Gastrointestinal: No nausea, vomiting or diarrhea Genitourinary: No dysuria or hematuria Musculoskeletal: No new or worsening neck pain or back pain Neurologic: No headaches, seizures Hematologic: No easy bruising or bleeding Endocrine: No night sweats or acute weight loss Skin: negative for rash, jaundice Psychiatric: No suicidal or homicidal ideation Past History Past Medical History: COPD, hypertension Past Surgical History: Other (Left lobectomy in the past secondary to lung cancer) Social history: smoking (Smokes less than half a pack of cigarette daily) Medications and Allergies Allergies Allergy/AdvReac Type Severity Reaction Status Date / Time No Known Allergies Allergy Unverified 06/17/19 16:13 Home Medications Medication Instructions Recorded Confirmed Last Taken Type Apixaban [Eliquis] 5 mg PO Q12HR 06/18/19 06/18/19 06/15/19 22:00 History 5 mg Atorvastatin [Lipitor Tab] 40 mg PO QHS 06/18/19 06/18/19 06/15/19 22:00 History 40 mg Finasteride 5 mg PO DAILY 06/18/19 06/18/19 06/15/19 09:00 History 5 mg Metoprolol Xl [Metoprolol 100 mg PO QDAY 06/18/19 06/18/19 06/15/19 09:00 Histor y SUCCINATE ER TAB] 100 mg Tamsulosin [Flomax] 0.4 mg PO QDAY 1206/18/19 06/15/19 22:00 History 0.4mg allopurinoL [Zyloprim] 300 mg PO QDAY 06/18/19 06/18/19 06/15/19 09:00 History 300 mg hydrALAZINE [Apresoline] 25 mg PO Q8HR 06/18/19 06/18/19 06/15/19 22:00 History 25 mg Gabadone Capsule 300 mg PO BID 06/20/19 06/20/19 Unknown History Active Meds: Active Medications Acetaminophen (Tylenol) 650 mg PO Q4H PRN PRN Reason: Pain MILD(1-3)/Fever >100.5/LEAHY Last Admin: 06/22/19 08:43 Dose: 650 mg Documented by: Albuterol (Proventil) 2.5 mg IH Q4HRT PRN PRN Reason: Shortness Of Breath Albuterol/Ipratropium (Duoneb *Not For Prn Use*) 1 ampul IH TIDRT [facility] Last Admin: 06/22/19 07:33 Dose: 1 ampul Documented by: Allopurinol (Zyloprim) 300 mg PO QDAY [facility] Last Admin: 06/22/19 09:18 Dose: 300 mg Documented by: Apixaban (Eliquis) 5 mg PO Q12HR [facility]; Protocol Last Admin: 06/22/19 09:18 Dose: 5 mg Documented by: Atorvastatin Calcium (Lipitor) 40 mg PO QHS [facility] Last Admin: 06/21/19 22:24 Dose: 40 mg Documented by: Finasteride (Proscar) 5 mg PO DAILY [facility] Last Admin: 06/22/19 09:23 Dose: 5 mg Documented by: Sodium Chloride (Nacl 0.9% 1000 Ml) 1,000 mls @ 125 mls/hr IV DIRECT [facility] Last Admin: 06/22/19 08:44 Dose: 125 mls/hr Documented by: Levofloxacin/Dextrose (Levaquin 750mg/150ml) 750 mg in 150 mls @ 100 mls/hr IV Q24HR [facility]; Protocol Last Admin: 06/22/19 09:18 Dose: 100 mls/hr Documented by: Vancomycin HCl 750 mg/ Sodium (Chloride) 265 mls @ 166.667 mls/hr IV Q12H [facility] Last Admin: 06/22/19 11:30 Dose: 166.667 mls/hr Documented by: Magnesium Hydroxide (Milk Of Magnesia) 30 ml PO Q4H PRN PRN Reason: Constipation Morphine Sulfate (Morphine) 2 mg IV Q4H PRN PRN Reason: Pain, Moderate (4-6) Ondansetron HCl (Zofran) 4 mg IV Q8H PRN PRN Reason: Nausea And Vomiting Sodium Chloride (Sodium Chloride Flush Syringe 10 Ml) 10 ml IV BID [facility] Last Admin: 06/22/19 11:31 Dose: 10 ml Documented by: Sodium Chloride (Sodium Chloride Flush Syringe 10 Ml) 10 ml IV PRN PRN PRN Reason: LINE FLUSH Last Admin: 06/18/19 02:10 Dose: 10 ml Documented by: Tamsulosin HCl (Flomax) 0.4 mg PO QDAY [facility] Last Admin: 06/22/19 09:18 Dose: 0.4 mg Documented by: Physical Examination - Physical Exam Narrative exam: Physical Exam: Constitutional: Alert, cooperative. No acute distress Head, Ears, Nose: Normocephalic, atraumatic. External ears, nose normal Eyes: Conjunctivae/corneas clear. No icterus. No ptosis. Neck: Supple, no meningeal signs Oral: edentulous, no thrush Cardiovascular: S1, S2 normal. PPM + site non tender Respiratory: AE absent on left side. GI: Soft, non-tender; bowel sounds normal. No peritoneal signs Musculoskeletal: No pedal edema, no cyanosis. Skin: No rash or abscess Hem/Lymphatic: No palpable cervical or supraclavicular nodes. No lymphangitis Psych: Mood ok. Affect normal Neurological: Awake, alert, oriented. No gross abnormality - Constitutional Vitals: Vital Signs Temp Pulse Resp BP Pulse Ox 99.0 F 68 20 74/49 100 06/22/19 08:15 06/22/19 08:15 06/22/19 08:15 06/22/19 09:31 06/22/19 10:00 Temperature -Last 24 Hours Temperature 99.0 F Temperature 98.2 F Temperature 98.2 F Temperature 97.8 F Temperature 97.8 F Results - Labs CBC & Chem 7: 06/21/19 13:01 06/21/19 15:06 Labs: Abnormal lab results 06/19/19 06/21/19 06/21/19 Range/Units 08:32 13:01 15:06 Hgb 10.5 L (11.8-15.2) gm/dl Hct 32.2 L (35.5-45.6) % RDW 20.0 H (13.2-15.2) % Lymph % (Auto) 6.1 L (13.4-35.0) % Lymph # 0.3 L (1.2-5.4) K/mm3 Seg Neutrophils % 85.5 H (40.0-70.0) % Carbon Dioxide 21 L (22-30) mmol/L Calcium 8.3 L (8.4-10.2) mg/dL Free T3 Index 1.7 L (2.3-4.2) pg/mL - Imaging and Cardiology Chest x-ray: report reviewed, image reviewed (r sided patchy infiltrates. Left pneumonectomy with whiteout) Assessment and Plan Cultures: 06/17/2019 urine culture: No growth 06/18/2019 blood culture: Streptococcus pneumoniae A/P: 73-year-old male with COPD, left pneumonectomy due to lung cancer, hypertension, indwelling cardiac pacemaker admitted with: #Sepsis secondary to right-sided pneumonia and Streptococcus pneumoniae bacteremia: Improving. Due to indwelling pacemaker, recheck blood cultures and also get transthoracic echocardiogram. Continue empiric levofloxacin for now. Recs: Continue levofloxacin Blood cultures and TTE ordered d/w Dr. Griffith. Aquiles Pavon MD, FACP [facility] C: [phone] O: [phone] F: [phone]
[2019-06-22] MEDS ORDERED: SODIUM CHLORIDE 0.9% 1000 ML 1,000 ML IV ONE (16:28)
[2019-06-23] MEDS: VANCOMYCIN 750 MG in SODIUM CHLORIDE 0.9% 250ML 250 ML IV SCH (01:01)
[2019-06-23] MEDS: IPRATROPIUM/ALBUTEROL SULFATE 3 ML AMPUL.NEB IH SCH ×3 (08:19→20:27)
[2019-06-23] MEDS: TAMSULOSIN 0.4 MG CAP PO SCH (09:38)
[2019-06-23] MEDS: allopurinoL 300 MG TAB PO SCH (09:38)
[2019-06-23] MEDS: FINASTERIDE 5 MG TAB PO SCH (09:38)
[2019-06-23] MEDS: APIXABAN 5 MG TAB PO SCH ×2 (09:38→22:37)
[2019-06-23] MEDS: ACETAMINOPHEN 325 MG TAB PO PRN ×2 (09:56→20:34)
--- NOTE | 2019-06-23 12:21 | Progress Note ---
Assessment and Plan Assessment and plan: Sepsis with Strep pneumoniae. Present on admission. Patient meets criteria given the leukocytosis, tachycardia and diagnosis of pneumonia. Blood cultures pos for strep pneumoniae Consulted ID Continue Levaquin repeat blood cultures drawn For Echocardiogram RML/RLL pneumonia. As above. Acute COPD exacerbation. Continue IV steroids, IV antibiotics and bronchodilators/nebulizers. History of lung CA. Patient is s/p left-sided lobectomy Acute hypoxemic respiratory failure. Etiology secondary to above. Continue O2 and BiPAP as clinically indicated. Hypertension. Continue antihypertensive medications. Multinodular goiter. Follow as outpatient DVT prophylaxis. Continue anticoagulants. Discussed with patient with daughter on phone. History Interval history: less shortness of breath Positive blood cultures Hospitalist Physical - Physical exam Narrative exam: General appearance: Present: no acute distress, - EENT Eyes: Present: PERRL, EOM intact ENT: hearing intact, clear oral mucosa, dentition normal - Neck Neck: Present: supple, normal ROM - Respiratory Respiratory effort: normal Respiratory: bilateral: CTA - Cardiovascular Rhythm: regular Heart Sounds: Present: S1 & S2. Absent: gallop, rub - Extremities Extremities: no ischemia, No edema, Full ROM - Abdominal General gastrointestinal: soft, non-tender, non-distended, normal bowel sounds - Integumentary Integumentary: Present: clear, warm, dry - Neurologic Neurologic: CNII-XII intact, moves all extremities - Constitutional Vitals: Temp Pulse Resp BP Pulse Ox 98.7 F 59 L 20 146/68 97 06/23/19 07:23 06/23/19 07:23 06/23/19 07:23 06/23/19 07:23 06/23/19 08:18 General appearance: Present: no acute distress Results - Labs CBC & Chem 7: 06/21/19 13:01 06/21/19 15:06 Labs: Laboratory Last Values WBC 5.7 K/mm3 (4.5-11.0) 06/21/19 13:01 RBC 3.72 M/mm3 (3.65-5.03) 06/21/19 13:01 Hgb 10.5 gm/dl (11.8-15.2) L 06/21/19 13:01 Hct 32.2 % (35.5-45.6) L 06/21/19 13:01 MCV 86 fl (84-94) 06/21/19 13:01 MCH 28 pg (28-32) 06/21/19 13:01 MCHC 33 % (32-34) 06/21/19 13:01 RDW 20.0 % (13.2-15.2) H 06/21/19 13:01 Plt Count 183 K/mm3 (140-440) 06/21/19 13:01 Lymph % (Auto) 6.1 % (13.4-35.0) L 06/21/19 13:01 [place] % (Auto) 5.9 % (0.0-7.3) 06/21/19 13:01 Eos % (Auto) 2.0 % (0.0-4.3) 06/21/19 13:01 Baso % (Auto) 0.5 % (0.0-1.8) 06/21/19 13:01 Lymph # 0.3 K/mm3 (1.2-5.4) L 06/21/19 13:01 [place] # 0.3 K/mm3 (0.0-0.8) 06/21/19 13:01 Eos # 0.1 K/mm3 (0.0-0.4) 06/21/19 13:01 Baso # 0.0 K/mm3 (0.0-0.1) 06/21/19 13:01 Add Manual Diff Complete 06/19/19 07:28 Total Counted 100 06/19/19 07:28 Seg Neutrophils % 85.5 % (40.0-70.0) H 06/21/19 13:01 Seg Neuts % (Manual) 97.0 % (40.0-70.0) H 06/19/19 07:28 Band Neutrophils % 1.0 % 06/19/19 07:28 Lymphocytes % (Manual) 2.0 % (13.4-35.0) L 06/19/19 07:28 Reactive Lymphs % (Man) 0 % 06/19/19 07:28 Monocytes % (Manual) 0 % (0.0-7.3) 06/19/19 07:28 Eosinophils % (Manual) 0 % (0.0-4.3) 06/19/19 07:28 Basophils % (Manual) 0 % (0.0-1.8) 06/19/19 07:28 Metamyelocytes % 0 % 06/19/19 07:28 Myelocytes % 0 % 06/19/19 07:28 Promyelocytes % 0 % 06/19/19 07:28 Blast Cells % 0 % 06/19/19 07:28 Nucleated RBC % Not Reportable 06/19/19 07:28 Seg Neutrophils # 4.9 K/mm3 (1.8-7.7) 06/21/19 13:01 Seg Neutrophils # Man 12.6 K/mm3 (1.8-7.7) H 06/19/19 07:28 Band Neutrophils # 0.1 K/mm3 06/19/19 07:28 Lymphocytes # (Manual) 0.3 K/mm3 (1.2-5.4) L 06/19/19 07:28 Abs React Lymphs (Man) 0.0 K/mm3 06/19/19 07:28 Monocytes # (Manual) 0.0 K/mm3 (0.0-0.8) 06/19/19 07:28 Eosinophils # (Manual) 0.0 K/mm3 (0.0-0.4) 06/19/19 07:28 Basophils # (Manual) 0.0 K/mm3 (0.0-0.1) 06/19/19 07:28 Metamyelocytes # 0.0 K/mm3 06/19/19 07:28 Myelocytes # 0.0 K/mm3 06/19/19 07:28 Promyelocytes # 0.0 K/mm3 06/19/19 07:28 Blast Cells # 0.0 K/mm3 06/19/19 07:28 WBC Morphology Not Reportable 06/19/19 07:28 Hypersegmented Neuts Not Reportable 06/19/19 07:28 Hyposegmented Neuts Not Reportable 06/19/19 07:28 Hypogranular Neuts Not Reportable 06/19/19 07:28 Smudge Cells Not Reportable 06/19/19 07:28 Toxic Granulation Not Reportable 06/19/19 07:28 Toxic Vacuolation Not Reportable 06/19/19 07:28 Dohle Bodies Not Reportable 06/19/19 07:28 Pelger-Huet Anomaly Not Reportable 06/19/19 07:28 Bong Rods Not Reportable 06/19/19 07:28 Platelet Estimate Consistent w auto 06/19/19 07:28 Clumped Platelets Not Reportable 06/19/19 07:28 Plt Clumps, EDTA Not Reportable 06/19/19 07:28 Large Platelets Few 06/19/19 07:28 Giant Platelets Not Reportable 06/19/19 07:28 Platelet Satelliting Not Reportable 06/19/19 07:28 Plt Morphology Comment Not Reportable 06/19/19 07:28 RBC Morphology Not Reportable 06/19/19 07:28 Dimorphic RBCs Not Reportable 06/19/19 07:28 Polychromasia Not Reportable 06/19/19 07:28 Hypochromasia Few 06/19/19 07:28 Poikilocytosis Not Reportable 06/19/19 07:28 Anisocytosis Not Reportable 06/19/19 07:28 Microcytosis Not Reportable 06/19/19 07:28 Macrocytosis Not Reportable 06/19/19 07:28 Spherocytes Not Reportable 06/19/19 07:28 Pappenheimer Bodies Not Reportable 06/19/19 07:28 Sickle Cells Not Reportable 06/19/19 07:28 Target Cells Few 06/19/19 07:28 Tear Drop Cells Not Reportable 06/19/19 07:28 Ovalocytes Not Reportable 06/19/19 07:28 Helmet Cells Not Reportable 06/19/19 07:28 [place] Bodies Not Reportable 06/19/19 07:28 [place] Rings Not Reportable 06/19/19 07:28 [place] Cells Rare 06/19/19 07:28 Bite Cells Not Reportable 06/19/19 07:28 Crenated Cell Not Reportable 06/19/19 07:28 Elliptocytes Few 06/19/19 07:28 Acanthocytes (Spur) Not Reportable 06/19/19 07:28 Rouleaux Not Reportable 06/19/19 07:28 Hemoglobin C Crystals Not Reportable 06/19/19 07:28 Schistocytes Rare 06/19/19 07:28 Malaria parasites Not Reportable 06/19/19 07:28 Niels Bodies Not Reportable 06/19/19 07:28 Hem Pathologist Commnt No 06/19/19 07:28 PT 21.0 Sec. (12.2-14.9) H 06/18/19 05:59 INR 1.78 (0.87-1.13) H 06/18/19 05:59 APTT 41.8 Sec. (24.2-36.6) H 06/18/19 05:59 POC ABG pH 7.543 (7.35-7.45) H 06/17/19 22:08 POC ABG pCO2 28.4 (35-45) L 06/17/19 22:08 POC ABG pO2 80 (80-105) 06/17/19 22:08 POC ABG HCO3 24.4 (22-26 mml/L) 06/17/19 22:08 POC ABG Total CO2 25 (23-27mmol/L) 06/17/19 22:08 POC ABG O2 Sat 97 06/17/19 22:08 POC ABG Base Excess 2 ((-2) - (+3)mmol/L) 06/17/19 22:08 FiO2 36 % 06/17/19 22:08 Sodium 137 mmol/L (137-145) 06/21/19 15:06 Potassium 3.7 mmol/L (3.6-5.0) 06/21/19 15:06 Chloride 105.9 mmol/L (98-107) 06/21/19 15:06 Carbon Dioxide 21 mmol/L (22-30) L 06/21/19 15:06 Anion Gap 14 mmol/L 06/21/19 15:06 BUN 14 mg/dL (9-20) 06/21/19 15:06 Creatinine 0.9 mg/dL (0.8-1.5) 06/21/19 15:06 Estimated GFR > 60 ml/min 06/21/19 15:06 BUN/Creatinine Ratio 16 % 06/21/19 15:06 Glucose 98 mg/dL (75-100) 06/21/19 15:06 Calcium 8.3 mg/dL (8.4-10.2) L 06/21/19 15:06 Total Bilirubin 0.70 mg/dL (0.1-1.2) 06/17/19 16:36 AST 18 units/L (5-40) 06/17/19 16:36 ALT 8 units/L (7-56) 06/17/19 16:36 Alkaline Phosphatase 74 units/L (35-129) 06/17/19 16:36 Troponin T 0.037 ng/mL (0.00-0.029) H 06/17/19 18:53 NT-Pro-B Natriuret Pep 5019 pg/mL (0-900) H 06/17/19 18:53 Total Protein 8.4 g/dL (6.3-8.2) H 06/17/19 16:36 Albumin 3.2 g/dL (3.9-5) L 06/17/19 16:36 Albumin/Globulin Ratio 0.6 % 06/17/19 16:36 Triglycerides 53 mg/dL (2-149) 06/17/19 16:36 Cholesterol 91 mg/dL (50-199) 06/17/19 16:36 LDL Cholesterol Direct 39 mg/dL (50-130) L 06/17/19 16:36 HDL Cholesterol 49 mg/dL (40-59) 06/17/19 16:36 Cholesterol/HDL Ratio 1.85 % 06/17/19 16:36 TSH 2.100 mlU/mL (0.270-4.200) 06/19/19 08:32 Free T4 1.18 ng/dL (0.76-1.46) 06/19/19 08:32 Free T3 Index 1.7 pg/mL (2.3-4.2) L 06/19/19 08:32 Urine Color Yellow (Yellow) 06/17/19 18:25 Urine Turbidity Clear (Clear) 06/17/19 18:25 Urine pH 5.0 (5.0-7.0) 06/17/19 18:25 Ur Specific [place] 1.015 (1.003-1.030) 06/17/19 18:25 Urine Protein 30 mg/dl mg/dL (Negative) 06/17/19 18:25 Urine Glucose (UA) Neg mg/dL (Negative) 06/17/19 18:25 Urine Ketones Neg mg/dL (Negative) 06/17/19 18:25 Urine Blood Sm (Negative) 06/17/19 18:25 Urine Nitrite Pos (Negative) 06/17/19 18:25 Urine Bilirubin Neg (Negative) 06/17/19 18:25 Urine Urobilinogen < 2.0 mg/dL (<2.0) 06/17/19 18:25 Ur Leukocyte Esterase Tr (Negative) 06/17/19 18:25 Urine WBC (Auto) 11.0 /HPF (0.0-6.0) H 06/17/19 18:25 Urine RBC (Auto) 1.0 /HPF (0.0-6.0) 06/17/19 18:25 U Epithel Cells (Auto) 1.0 /HPF (0-13.0) 06/17/19 18:25 Urine Bacteria (Auto) 2+ /HPF (Negative) 06/17/19 18:25 Urine Mucus Few /HPF 06/17/19 18:25 Vancomycin Trough 8.7 ug/mL (5.0-20.0) 06/20/19 16:43 Active Medications - Current Medications Current Medications: Generic Name Dose Route Start Last Admin Trade Name Freq PRN Reason Stop Dose Admin Acetaminophen 650 mg 06/17/19 23:25 06/23/19 09:56 Tylenol PO 650 mg Q4H PRN Administration Pain MILD(1-3)/Fever >100.5/LEAHY Albuterol 2.5 mg 06/19/19 14:37 Proventil IH Q4HRT PRN Shortness Of Breath Albuterol/Ipratropium 1 ampul 06/19/19 20:00 06/23/19 08:19 Duoneb *Not For Prn Use* IH Not Given TIDRT JON Allopurinol 300 mg 06/18/19 10:00 06/23/19 09:38 Zyloprim PO 300 mg QDAY JON Administration Apixaban 5 mg 06/18/19 10:00 06/23/19 09:38 Eliquis PO 5 mg Q12HR JON Administration Protocol Atorvastatin Calcium 40 mg 06/18/19 22:00 06/22/19 21:12 Lipitor PO 40 mg QHS JON Administration Finasteride 5 mg 06/18/19 10:00 06/23/19 09:38 Proscar PO 5 mg DAILY JON Administration Sodium Chloride 1,000 mls @ 125 mls/hr 06/17/19 23:30 06/22/19 22:48 Nacl 0.9% 1000 Ml IV 125 mls/hr DIRECT JON Administration Levofloxacin/Dextrose 750 mg in 150 mls @ 100 mls/hr 06/18/19 10:00 06/23/19 09:37 Levaquin 750mg/150ml IV 100 mls/hr Q24HR JON Administration Protocol Vancomycin HCl 750 mg/ Sodium 265 mls @ 166.667 mls/hr 06/21/19 12:00 06/23/19 01:01 Chloride IV 166.667 mls/hr Q12H JON Administration Magnesium Hydroxide 30 ml 06/17/19 23:25 Milk Of Magnesia PO Q4H PRN Constipation Morphine Sulfate 2 mg 06/17/19 23:25 Morphine IV Q4H PRN Pain, Moderate (4-6) Ondansetron HCl 4 mg 06/17/19 23:25 Zofran IV Q8H PRN Nausea And Vomiting Sodium Chloride 10 ml 06/18/19 10:00 06/23/19 09:38 Sodium Chloride Flush Syringe 10 Ml IV 10 ml BID JON Administration Sodium Chloride 10 ml 06/17/19 23:25 06/18/19 02:10 Sodium Chloride Flush Syringe 10 Ml IV 10 ml PRN PRN Administration LINE FLUSH Tamsulosin HCl 0.4 mg 06/18/19 10:00 06/23/19 09:38 Flomax PO 0.4 mg QDAY JON Administration Nutrition/Malnutrition Assess - Dietary Evaluation Nutrition/Malnutrition Findings: Nutrition Notes Start: 06/18/19 11:39 Freq: Status: Active Protocol: Document 06/20/19 12:47 LP (Rec: 06/20/19 12:49 LP [id number]) Nutrition Notes Initial or Follow up Reassessment Current Diagnosis COPD,Sepsis,Hypertension Other Pertinent Diagnosis Pneu, left lobectomy, Hx lung CA, goiter Current Diet Cardiac with Ensure Enlive BID Labs/Tests K 3.5 Pertinent Medications Reviewed Height 5 ft 11 in Weight 54.4 kg [place] Body Weight (kg) 78.18 BMI 16.7 Weight Status Underweight Subjective/Other Information Pt consuming 75% of meals and drinking Ensure shakes. Percent of energy/protein needs met: 100%/100% Burn Absent Trauma Absent GI Symptoms None Current % PO Good (75-100%) Minimum of two criteria Yes Body Fat Depletion Moderate depletion (severe) Muscle Mass Moderate Depletion (severe) Fluid Accumulation Mild (non-severe) Reduced Special Diet Cook Strength Measurably Reduced (severe) #1 Nutrition Diagnosis Malnutrition Diagnosis Progress(for reassessment Continues documentation) Is patient on ventilator? No Is Patient Ambulatory and/or Out of Bed No REE-([place]-St. Jeor-confined to bed) 1567.896 Kcal/Kg value to use for calculation 35 Approximate Energy Requirements Using 1904 kcal/Kg Calculation Used for Recommendations Kcal/kg Additional Notes Protein needs are 65-82g (1.2- 1.5g/kg) Fluid needs are 1ml/kcal Nutrition Intervention Change Diet Order: Continue Add Supplement/Snack (indicate name/kcal Ensure Enlive [place] BID /protein ) Provides kCal: 700 Provides Protein (gm) 40 Goal #1 Meet at least 80% of kcal and protein needs Anticipated Discharge Needs: Cardiac diet with ONS BID to TID Follow-Up By: 06/24/19 Additional Comments Follow for stable intakes
--- NOTE | 2019-06-23 13:02 | Progress Note ---
Assessment and Plan Cultures: 06/17/2019 urine culture: No growth 06/18/2019 blood culture: Streptococcus pneumoniae 06/22/2019 blood culture: in process A/P: 73-year-old male with COPD, left pneumonectomy due to lung cancer, hypertension, indwelling cardiac pacemaker admitted with: #Sepsis secondary to right-sided pneumonia and Streptococcus pneumoniae bacteremia: Improving. Due to indwelling pacemaker, recheck blood cultures and also get transthoracic echocardiogram. Continue empiric levofloxacin for now. Recs: Continue levofloxacin f/u blood cultures and TTE vancomycin d/eriberto f/u Pneumococcus susceptibility profile Aquiles Pavon MD, FACP [facility] C: [phone] O: [phone] F: [phone] Subjective Date of service: 06/23/19 Interval history: no fever. continues to feel well. breathing is improving. no nausea, vomiting. Objective - Exam Narrative Exam: Physical Exam: Constitutional: Alert, cooperative. No acute distress Head, Ears, Nose: Normocephalic, atraumatic. External ears, nose normal Eyes: Conjunctivae/corneas clear. No icterus. No ptosis. Neck: Supple, no meningeal signs Oral: edentulous, no thrush Cardiovascular: S1, S2 normal. PPM + site non tender, no redness Respiratory: AE absent on left side. GI: Soft, non-tender; bowel sounds normal. No peritoneal signs Musculoskeletal: No pedal edema, no cyanosis. Skin: No rash or abscess Hem/Lymphatic: No palpable cervical or supraclavicular nodes. No lymphangitis Psych: Mood ok. Affect normal Neurological: Awake, alert, oriented. No gross abnormality - Constitutional Vitals: Vital Signs Temp Pulse Resp BP Pulse Ox 98.7 F 59 L 20 146/68 97 06/23/19 07:23 06/23/19 07:23 06/23/19 07:23 06/23/19 07:23 06/23/19 08:18 Temperature -Last 24 Hours Temperature 98.7 F Temperature 98.2 F Temperature 97.7 F Temperature 97.7 F Temperature 99.0 F - Labs CBC & Chem 7: 06/21/19 13:01 06/21/19 15:06
[2019-06-23] MEDS: SODIUM CHLORIDE 0.9% 1000 ML 1,000 ML IV SCH (20:36)
[2019-06-24] MEDS: VANCOMYCIN 750 MG in SODIUM CHLORIDE 0.9% 250ML 250 ML IV SCH (01:09)
[2019-06-24] MEDS: IPRATROPIUM/ALBUTEROL SULFATE 3 ML AMPUL.NEB IH SCH ×2 (09:36→15:24)
[2019-06-24] MEDS: TAMSULOSIN 0.4 MG CAP PO SCH (09:52)
[2019-06-24] MEDS: allopurinoL 300 MG TAB PO SCH (09:52)
[2019-06-24] MEDS: APIXABAN 5 MG TAB PO SCH (09:52)
[2019-06-24] MEDS: FINASTERIDE 5 MG TAB PO SCH (09:52)
[2019-06-24] MEDS ORDERED: levoFLOXacin 750 MG TAB PO SCH (10:00)
[2019-06-24] MEDS ORDERED: LISINOPRIL 20 MG TAB PO SCH (12:00)
[2019-06-24 13:01] VITALS: BP 99/61
[2019-06-24] MEDS: SODIUM CHLORIDE 0.9% 1000 ML 1,000 ML IV SCH (13:36)
--- NOTE | 2019-06-24 13:43 | Progress Note ---
Assessment and Plan Cultures: 06/17/2019 urine culture: No growth 06/18/2019 blood culture: Streptococcus pneumoniae 06/22/2019 blood culture: no growth thus far A/P: 73-year-old male with COPD, left pneumonectomy due to lung cancer, hypertension, indwelling cardiac pacemaker admitted with: #Sepsis secondary to right-sided pneumonia and Streptococcus pneumoniae bacteremia: Improving. TTE without obvious vegetations. Repeat blood cultures negative thus far. Will treat for 14 days. Recs: OK for discharge on PO levofloxacin 750 mg daily x 7 days d/w Dr. Kyle Pavon MD, FACP [facility] C: [phone] O: [phone] F: [phone] Subjective Date of service: 06/24/19 Interval history: Patient denies any fever. Feeling well, breathing is back to baseline. Tolerating abx. Objective - Exam Narrative Exam: Physical Exam: Constitutional: Alert, cooperative. No acute distress Head, Ears, Nose: Normocephalic, atraumatic. External ears, nose normal Eyes: Conjunctivae/corneas clear. No icterus. No ptosis. Neck: Supple, no meningeal signs Oral: edentulous, no thrush Cardiovascular: S1, S2 normal. PPM + site non tender, no redness Respiratory: AE absent on left side. GI: Soft, non-tender; bowel sounds normal. No peritoneal signs Musculoskeletal: No pedal edema, no cyanosis. Skin: No rash or abscess Hem/Lymphatic: No palpable nodes. No lymphangitis Psych: Mood ok. Affect normal Neurological: Awake, alert, oriented. No gross abnormality - Constitutional Vitals: Vital Signs Temp Pulse Resp BP Pulse Ox 99.0 F 57 L 20 99/61 98 06/24/19 12:59 06/24/19 12:59 06/24/19 12:59 06/24/19 12:59 06/24/19 12:59 Temperature -Last 24 Hours Temperature 99.0 F Temperature 98.9 F Temperature 98.8 F Temperature 98.3 F Temperature 98.8 F - Labs CBC & Chem 7: 06/21/19 13:01 06/21/19 15:06
--- NOTE | 2019-06-24 14:00 | Consultation ---
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 Pt followed by Dr. Faye at [place]. Pt presented c/o SOB and mild cough producing yellow sputum for the past several days. Pt denies any chest pain, palpitations, N/V, diaphoresis, dizziness or syncope. Upon arrival in the emergency room, patient was found to be slightly hypoxic and was placed on oxygen by nasal cannula. Patient has subsequently been diagnosed with PNA. Blood cultures positive for Streptococcus pneumoniae. Cardiology has been consulted for CMP. Echo done 03/2018 at [place], showed EF 40-45%, trace MR. Echo done 06/22/2019, showed EF 30-35%, mild MR, mild TR, RV systolic function mildly reduced. Cardiac PET done 11/2017 at [place], negative for ischemia or scar, EF 29% at rest and 30% with stress. Past History Past Medical History: atrial fib, CAD, cancer (lung CA s/p L lobectomy), COPD, hypertension, hyperlipidemia Past Surgical History: Other (Left lobectomy in the past secondary to lung cancer; PPM) Social history: smoking (Smokes less than half a pack of cigarette daily) Medications and Allergies Allergies Allergy/AdvReac Type Severity Reaction Status Date / Time No Known Allergies Allergy Unverified 06/17/19 16:13 Home Medications Medication Instructions Recorded Confirmed Last Taken Type Apixaban [Eliquis] 5 mg PO Q12HR 06/18/19 06/18/19 06/15/19 22:00 History 5 mg Atorvastatin [Lipitor Tab] 40 mg PO QHS 06/18/19 06/18/19 06/15/19 22:00 History 40 mg Finasteride 5 mg PO DAILY 06/18/19 06/18/19 06/15/19 09:00 History 5 mg Metoprolol Xl [Metoprolol 100 mg PO QDAY 06/18/19 06/18/19 06/15/19 09:00 History SUCCINATE ER TAB] 100 mg Tamsulosin [Flomax] 0.4 mg PO QDAY 06/18/19 06/18/19 06/15/19 22:00 History 0.4mg allopurinoL [Zyloprim] 300 mg PO QDAY 06/18/19 06/18/19 06/15/19 09:00 History 300 mg hydrALAZINE [Apresoline] 25 mg PO Q8HR 06/18/19 06/18/19 06/15/19 22:00 History 25 mg Gabadone Capsule 300 mg PO BID 06/20/19 06/20/19 Unknown History Active Meds: Active Medications Acetaminophen (Tylenol) 650 mg PO Q4H PRN PRN Reason: Pain MILD(1-3)/Fever >100.5/LEAHY Last Admin: 06/23/19 20:34 Dose: 650 mg Documented by: Albuterol (Proventil) 2.5 mg IH Q4HRT PRN PRN Reason: Shortness Of Breath Albuterol/Ipratropium (Duoneb *Not For Prn Use*) 1 ampul IH TIDRT [facility] Last Admin: 06/24/19 09:36 Dose: 1 ampul Documented by: Allopurinol (Zyloprim) 300 mg PO QDAY [facility] Last Admin: 06/24/19 09:52 Dose: 300 mg Documented by: Apixaban (Eliquis) 5 mg PO Q12HR [facility]; Protocol Last Admin: 06/24/19 09:52 Dose: 5 mg Documented by: Atorvastatin Calcium (Lipitor) 40 mg PO QHS [facility] Last Admin: 06/23/19 22:38 Dose: 40 mg Documented by: Finasteride (Proscar) 5 mg PO DAILY [facility] Last Admin: 06/24/19 09:52 Dose: 5 mg Documented by: Sodium Chloride (Nacl 0.9% 1000 Ml) 1,000 mls @ 125 mls/hr IV DIRECT [facility] Last Admin: 06/24/19 13:36 Dose: 125 mls/hr Documented by: Levofloxacin (Levaquin) 750 mg PO Q24H [facility] Last Admin: 06/24/19 09:52 Dose: 750 mg Documented by: Lisinopril (Zestril) 20 mg PO QDAY [facility] Last Admin: 06/24/19 12:59 Dose: Not Given Documented by: Magnesium Hydroxide (Milk Of Magnesia) 30 ml PO Q4H PRN PRN Reason: Constipation Morphine Sulfate (Morphine) 2 mg IV Q4H PRN PRN Reason: Pain, Moderate (4-6) Ondansetron HCl (Zofran) 4 mg IV Q8H PRN PRN Reason: Nausea And Vomiting Sodium Chloride (Sodium Chloride Flush Syringe 10 Ml) 10 ml IV BID [facility] Last Admin: 06/24/19 09:52 Dose: 10 ml Documented by: Sodium Chloride (Sodium Chloride Flush Syringe 10 Ml) 10 ml IV PRN PRN PRN Reason: LINE FLUSH Last Admin: 06/18/19 02:10 Dose: 10 ml Documented by: Tamsulosin HCl (Flomax) 0.4 mg PO QDAY [facility] Last Admin: 06/24/19 09:52 Dose: 0.4 mg Documented by: Review of Systems Constitutional: no weight loss, no weight gain, no fever, no chills Ears, nose, mouth and throat: no ear pain, no nose pain, no sinus pressure, no sinus pain Cardiovascular: shortness of breath, no chest pain, no orthopnea, no palpitations, no edema, no syncope, no leg edema Respiratory: cough with sputum, shortness of breath Gastrointestinal: no abdominal pain, no nausea, no vomiting, no diarrhea, no constipation, no change in bowel habits Genitourinary Male: no dysuria, no hematuria Rectal: no pain Musculoskeletal: no neck stiffness, no neck pain, no shooting arm pain, no arm numbness/tingling, no low back pain, no shooting leg pain, no leg numbness/tingling, no redness of joints Integumentary: no rash, no sores, no wounds Neurological: no head injury, no paralysis, no weakness, no parathesias, no numbness, no tingling, no seizures, no syncope Psychiatric: no anxiety Endocrine: no cold intolerance, no heat intolerance Hematologic/Lymphatic: no easy bruising, no easy bleeding Allergic/Immunologic: no urticaria Physical Examination Vital Signs Temp Pulse BP 98.8 F 112 H 120/39 06/17/19 15:09 06/17/19 15:09 06/17/19 15:09 General appearance: no acute distress HEENT: Positive: PERRL, Normocephaly Neck: Positive: neck supple, trachea midline Cardiac: Positive: Reg Rate and Rhythm, S1/S2 Lungs: Positive: Decreased Breath Sounds (Left side) Neuro: Positive: Grossly Intact Abdomen: Positive: Soft, Tender Skin: Negative: Rash, Wound Musculoskeletal: No Pain Extremities: Present: normal, upper extr. pulses, lower extr. pulses Results 06/21/19 13:01 06/21/19 15:06 - Imaging and Cardiology Echo: report reviewed (Echo done 06/22/2019, showed EF 30-35%, mild MR, mild TR, RV systolic function mildly reduced. ) EKG: report reviewed, image reviewed EKG interpretations - Telemetry EKG Rhythm: Paced Pacemaker: ventricular pacing w/capt Assessment and Plan Currently stable cardiac status. Pt has known h/o NICMP. No current clinical evidence of acutely decompensated HF. Cont home cardiac regimen. PNA and COPD management per primary team. The patient has been seen in conjunction with Dr. East who agrees with the assessment and plan of care. - Patient Problems (1) Pneumonia Current Visit: Yes Status: Acute Qualifiers: Pneumonia type: due to unspecified organism Laterality: right Lung location: unspecified part of lung Qualified Code(s): J18.9 - Pneumonia, unspecified organism (2) Sepsis Current Visit: Yes Status: Acute (3) COPD (chronic obstructive pulmonary disease) Current Visit: Yes Status: Chronic (4) Non-ischemic cardiomyopathy Current Visit: Yes Status: Chronic (5) Nonobstructive atherosclerosis of coronary artery Current Visit: Yes Status: Chronic (6) Hypertension Current Visit: Yes Status: Chronic (7) Cardiac pacemaker in situ Current Visit: Yes Status: Chronic (8) Atrial flutter Current Visit: Yes Status: Chronic (9) History of lung cancer Current Visit: Yes Status: Chronic (10) Status post lobectomy of lung Current Visit: Yes Status: Chronic (11) Tobacco use Current Visit: Yes Status: Chronic (12) History of cocaine use Current Visit: Yes Status: Chronic
--- NOTE | 2019-06-24 14:40 | Discharge Summary ---
Providers - Providers Date of Admission: 06/17/19 23:18 Date of discharge: 06/24/19 Attending physician: VIN GRIFFITH 06/20/19 10:58 Physical Therapy Evaluation and Treat [CONS] Routine Comment: Reason For Exam: deconditioning 06/22/19 07:50 Consult to Physician [CONS] Routine Comment: called answ. serv. / richie Consulting Provider: MONICO GREEN Physician Instructions: Reason For Exam: Strep pneumoniae bacteremia, sepsis 06/24/19 11:15 Consult to Physician [CONS] Routine Comment: spoke to seven/ richie Consulting Provider: SASHA IRIZARRY Physician Instructions: Reason For Exam: Cardiomyopathy Primary care physician: TREVIN KNAPP Hospitalization Condition: Fair Disposition: DC-01 TO HOME OR SELFCARE Exam - Constitutional Vitals: Temp Pulse Resp BP Pulse Ox 99.0 F 57 L 20 99/61 98 06/24/19 12:59 06/24/19 12:59 06/24/19 12:59 06/24/19 12:59 06/24/19 12:59 Plan Activity: advance as tolerated Diet: low fat, low cholesterol, low salt Plan of Treatment: 1.Follow up with PCP in 1 week. 2.Follow up with cardiology in 1 week Prescriptions: levoFLOXacin [Levaquin TAB] 750 mg PO Q24H #7 tablet
[2019-06-25] MEDS ORDERED: ASPIRIN 81 MG TAB CHEW PO SCH (10:00)
== END 2019-06-24 18:55 | disposition home health service (06) | DRG 871 ==
LOC: ED 14:44 → EDBD 14:44 → 2B-ACE 23:18
PROVIDERS: ADMIT Internal Medicine Geriatric Medicine; ATTEND Internal Medicine
PROC: 4A033R1 Measurement of Arterial Saturation, Peripheral, Percutaneous Approach (ICD-10-PCS; principal; 2019-06-17)
DX: A40.3 Sepsis due to Streptococcus pneumoniae (principal); J18.9 Pneumonia, unspecified organism; J96.01 Acute respiratory failure with hypoxia; J44.0 Chronic obstructive pulmonary disease with (acute) lower respiratory infection; N39.0 Urinary tract infection, site not specified; J44.1 Chronic obstructive pulmonary disease with (acute) exacerbation; I48.92 Unspecified atrial flutter; I48.91 Unspecified atrial fibrillation; E04.2 Nontoxic multinodular goiter; F17.210 Nicotine dependence, cigarettes, uncomplicated; Z71.6 Tobacco abuse counseling; Z95.0 Presence of cardiac pacemaker; Z90.2 Acquired absence of lung [part of]; Z85.118 Personal history of other malignant neoplasm of bronchus and lung; Z79.01 Long term (current) use of anticoagulants; Z79.899 Other long term (current) drug therapy
CPT/HCPCS: 36415; 71045; 71275; 80048; 80053; 80061; 80202; 81001; 82803; 83880; 84439; 84443; 84481; 84484; 85007; 85025; 85610; 85730; 87040; 87076; 87086; 87116; 87186; 93005; 93010; 93306; 94640; 94760; 99406; G0378; A9270-GY; J1956; J2270; J3370; J7030; J7050; Q9967